=== PATIENT | male | born 1935 | race Caucasian/White ===

== ENCOUNTER 2018-09-06 12:03 | Inpatient (IN) ==
[2018-09-06] MEDS ORDERED: MORPHINE IV ONE ×2 (13:07→15:15)
[2018-09-06] MEDS ORDERED: ZOFRAN IV ONE (13:07)
[2018-09-06 13:39] LABS: BASO# 0.02 X1000 (0.0-0.2); BASO% 0.2 % (0.0-0.8); EOS# 0.23 X1000 (0.0-0.7); EOS% 1.8 % (0.0-10.0); HEMATOCRIT 51.7 % (42.0-52.0); IMM GRAN# 0.06 X1000 (0.0-0.04); IMM GRAN% 0.5 % (0.0-0.5); LYMPH# 0.83 X1000 (1.2-3.4); LYMPH% 6.6 % (20.5-51.1); MCH 32.1 PG (27-31); MCHC 32.9 g/dL (33-37); MCV 97.5 FL (81-99); MONO# 0.83 X1000 (0.11-0.59); MONO% 6.6 % (1.7-9.3); MPV 12.2 FL (7.4-10.4); NEUT# 10.57 X1000 (1.4-6.5); NEUT% 84.3 % (42.2-75.2); PLT 158 X1000 (130-400); RDW 12.9 % (11.5-14.5); WBC 12.54 X1000 (4.8-10.8)
[2018-09-06 14:02] LABS: ALB/GLOB RATIO 1.9; ALBUMIN 4.1 g/dL (3.5-5.0); CALCIUM 8.6 mg/dL (8.8-10.2); CREATININE 1.9 mg/dL (0.7-1.2); MAGNESIUM 2.9 mg/dL (1.5-2.7); POTASSIUM 4.4 mmol/L (3.5-5.1); TOTAL BILIRUBIN 2.27 mg/dL (0.20-1.00); TOTAL PROTEIN 6.3 g/dL (6.3-8.3)
--- NOTE | 2018-09-06 14:45 | Diag Imaging Result Doc PS360 ---
EXAM: US GB < RUQ (LIMITED) INDICATION: RUQ PAIN; PLEASE ALSO EVALUATE CBD COMPARISON: 08/03/2018 FINDINGS: There is thick layering sludge in the gallbladder lumen, which was also seen on the previous study. No shadowing stones are identified on the current study. The gallbladder wall is thickened and edematous, which was not seen on the previous study. The gallbladder wall measures up to 8.7 mm in thickness. No pericholecystic fluid is appreciated. The common bile duct is within normal limits given the age of the patient measuring up to 7 mm in diameter. Sonographic Harvey's sign was reported to be positive by the technologist. There is a 2.6 cm simple appearing hepatic cyst. The liver is grossly unremarkable, otherwise. Portal venous flow is hepatopetal. The pancreas is partially obscured. The visualized portion is unremarkable. The aorta and IVC are also partially obscured. The visualized portions are unremarkable. The right kidney exhibits increased echotexture, which is a nonspecific indicator of medical renal disease. There is a 2.8 cm simple renal cyst. IMPRESSION: Thick sludge in the gallbladder lumen with a significantly thickened and edematous gallbladder wall and a reported positive sonographic Harvey's sign, which is highly suspicious for cholecystitis. Electronically signed by Kevin Khoury 09/06/2018 2:43 PM
[2018-09-06] MEDS ORDERED: NS 1,000 ML IV ONE (14:55)
[2018-09-06 14:57] LABS: URINE SOURCE CLEAN CATCH
[2018-09-06 15:02] LABS: BILIRUBIN URINE NEGATIVE (NEGATIVE); BLOOD URINE NEGATIVE (NEGATIVE); COLOR YELLOW; GLUCOSE URINE NEGATIVE (NEGATIVE); KETONE URINE NEGATIVE (NEGATIVE); LEUKOCYTES URINE NEGATIVE (NEGATIVE); NITRITE URINE NEGATIVE (NEGATIVE); PH URINE 7.5; PROTEIN URINE 30 mg/dL (NEGATIVE); SP GRAVITY URINE 1.016; TURBIDITY URINE CLEAR (CLEAR); UROBILINOGEN URINE 2 mg/dL (NORMAL)
[2018-09-06 15:04] LABS: UR EPITHELIAL CELLS <10 /HPF (<10); URINE BACTERIA NEGATIVE /HPF; URINE RBC <10 /HPF (<10); URINE WBC <10 /HPF (<10)
--- NOTE | 2018-09-06 15:16 | PROVIDER DOCUMENTATION ---
This chart was entered by Lisbet Ramos Scribe, acting as scribe for Yung Garcia MD. HPI-Abdominal Pain/GI Problem - General Chief Complaint: Abdominal Pain Stated Complaint: GALLBLADDER ISSUE Time Seen by Provider: 09/06/18 12:52 Source: patient Allergies/Adverse Reactions: Patient Allergies Allergy/AdvReac Type Severity Reaction Status Date / Time cephalexin [From Keflex] Allergy ANAPHYLAXIS Verified 09/05/18 08:22 steroids AdvReac HIVES Uncoded 09/05/18 08:22 Home Medications: Home Medication List Medication Instructions Recorded Confirmed Last Taken Type Biotin 2,500 mcg PO DAILY 09/05/18 09/05/18 Unknown History Calcium Citrate/Vitamin D3 1 each PO EVERY OTHER DAY 09/05/18 09/05/18 Unknown History [Calcium Citrate - Vit D Tablet] Clopidogrel Bisulfate [Plavix] 75 mg PO DAILY 09/05/18 09/05/18 08/29/18 History Cyanocobalamin (Vitamin B-12) 1,000 mcg PO DAILY 09/05/18 09/05/18 Unknown History [Vitamin B-12] Duloxetine HCl 2 cap PO DAILY 09/05/18 09/05/18 Unknown History Esomeprazole Magnesium 2 tab PO DAILY 09/05/18 09/05/18 Unknown History Evolocumab [Repatha Sureclick] 140 mg SQ DIRECTED 09/05/18 09/05/18 Unknown History Hydrocodone/Acetaminophen [[place] 1 each PO Q8HR 09/05/18 09/05/18 Unknown History 10-325 Tablet] Metoprolol Tartrate 25 mg PO DAILY 09/05/18 09/05/18 Unknown History Nitroglycerin 0.4 mg SL PRN PRN 09/05/18 09/05/18 Unknown History Potassium Chloride [Klor-Con M10] 10 meq PO DAILY 09/05/18 09/05/18 Unknown History Tocilizumab [Actemra] 162 mg SQ DIRECTED 09/05/18 09/05/18 Unknown History Torsemide 20 mg PO DAILY 09/05/18 09/05/18 Unknown History - History of Present Illness-ABD Nature of Presenting Problems: 83 yom presents to the ed with c/o RUQ with n/v x2 3 days. Abdominal Pain Onset Location: reports: RUQ Pain Radiation: reports: no radiation Quality of Pain: reports: aching, cramping Severity in ED: reports: moderate Onset/Duration: reports: 3 days ago Timing: reports: still present, intermittent Activities at Onset: reports: light activity Modifying Factors: improves with: nothing Associated Symptoms: reports: malaise, nausea, vomiting (x2). denies: cough, dizziness, fatigue, fever/chills Last BM: this morning Dark Stools Present?: reports: none noticed Rectal Bleeding: reports: none # of Diarrhea Episodes: 0 Rectal Pain: reports: none # of Vomiting Episodes: 2 Emesis Description: reports: none Bruising or Bleeding Gums?: No Similar Symptoms Previously?: No Review of Systems - Adult - REVIEW OF SYSTEMS - ADULT Constitutional: denies: chills, fever Eyes: reports: no symptoms reported Ears, Nose, Mouth & Throat: reports: no symptoms reported Cardiovascular: denies: chest pain, palpitations Respiratory: denies: cough, shortness of breath, wheezing Gastrointestinal: reports: abdominal pain (RUQ), nausea, vomiting. denies: diarrhea Genitourinary: reports: no symptoms reported Musculoskeletal: denies: back pain, neck pain Integumentary: reports: no symptoms reported Neurological: denies: dizziness/vertigo, headache/migraines Psychiatric: reports: no symptoms reported Endocrine: reports: no symptoms reported Hematologic/Lymphatic: reports: no symptoms reported Allergic/Immunologic: reports: no symptoms reported All Other Systems: Reviewed and Negative Past History - Adult - PAST MEDICAL HISTORY-ADULT Review of Records: reports: Old Records Reviewed, Nursing Assessment Review, Medications Reviewed, Social history reviewed & non-contributory. Major Childhood Illnesses: reports: denies history Cardiovascular: reports: HTN Respiratory: reports: denies history Gastrointestinal: reports: denies history Genitourinary: reports: kidney stones Musculoskeletal: reports: denies history Neurological: reports: denies history Endocrine/Immune: reports: denies history Other Conditions: reports: denies history - PRIOR SURGERIES/PROCEDURES Surgical/Procedure History: reports: reviewed, not pertinent - IMMUNIZATION STATUS Childhood Immunizations: See Nurse Assessment Flu Vaccine: See Nurse Assessment - FAMILY HISTORY Family History: reviewed, not pertinent - SOCIAL HISTORY Smoking: cigarettes, less than 1 pack/day Provider spent 3-5 mins advising pt. on dangers of tobacco.: Discussed manners to quit use, and f/u contacts for add'l counseling. Substance Use: denies Living Situation: family Physical Exam-General - PHYSICAL EXAM-ADULT Initial Vital Signs Reviewed: Yes - CONSTITUTIONAL General Appearance: appears well, alert, no apparent distress - EYES Eyes: PERRL/EOMI, pink conjunctivae - HEAD, EARS, NOSE, MOUTH & THROAT HENMT: normocephalic/atraumatic, moist mucous membranes, normal ENT inspection - NECK Neck: non-tender, full range of motion, supple, normal inspection - RESPIRATORY Respiratory: chest non-tender, lungs clear, normal breath sounds - CARDIOVASCULAR Cardiovascular: normal peripheral pulses, regular rate, rhythm - GASTROINTESTINAL (ABDOMEN) Abdominal Exam: normal bowel sounds, soft, tenderness (RUQ). negative: distended, guarding, rigid, rebound - LYMPHATIC Lymphatic: no adenopathy - MUSCULOSKELETAL Back Exam: normal inspection, no CVA tenderness, no vertebral tenderness Extremity: normal range of motion, non-tender, normal gait, normal inspection, no pedal edema, no calf tenderness, normal capillary refill, pelvis stable - SKIN Integumentary: normal color, normal turgor, warm/dry - NEUROLOGIC Neurologic: grossly normal, no motor/sensory deficits - PSYCHIATRIC Psych/Mental Status: normal mood/affect, normal thought content, normal thought process, oriented x 3 Progress - PLAN OF CARE/RESULTS Progress/Plan/Lab Results: Vital Signs - 8 hr 09/06/18 12:13 Temperature 98.3 F Pulse Rate 75 Respiratory Rate 18 Blood Pressure 141/73 O2 Sat by Pulse Oximetry 94 L Laboratory Results - last 24 hr 09/06/18 13:13 WBC 12.54 H RBC 5.30 Hgb 17.0 Hct 51.7 MCV 97.5 MCH 32.1 H MCHC 32.9 L RDW Std Deviation 12.9 Plt Count 158 MPV 12.2 H Immature Gran % (Auto) 0.5 Neut % (Auto) 84.3 H Lymph % (Auto) 6.6 L Cole % (Auto) 6.6 Eos % (Auto) 1.8 Baso % (Auto) 0.2 Immature Gran # (Auto) 0.06 H Neut # (Auto) 10.57 H Lymph # (Auto) 0.83 L Cole # (Auto) 0.83 H Eos # (Auto) 0.23 Baso # (Auto) 0.02 Orders Category Date Time Status NPO Diet 09/06/18 13:09 Active US GB < RUQ (LIMITED) [US] Stat Exams 09/06/18 13:05 Ordered AMYLASE [CHEM] Stat Lab 09/06/18 13:13 Received BLOOD CULTURE [BLDCUL] Stat Lab 09/06/18 13:13 Ordered CBC WITH ELECTRONIC DIFF [HEME] Stat Lab 09/06/18 13:13 Completed COMPREHENSIVE METABOLIC PANEL [CHEM] Stat Lab 09/06/18 13:13 Received LACTATE, PLASMA [CHEM] Stat Lab 09/06/18 13:13 Received LIPASE [CHEM] Stat Lab 09/06/18 13:13 Received MAGNESIUM [CHEM] Stat Lab 09/06/18 13:13 Received URINALYSIS W/POSS RFLX CULT [URINALYSIS] Stat Lab 09/06/18 13:09 Uncollected Morphine Med 09/06/18 13:07 Discontinued 4 mg IV NOW ONE Ondansetron [Zofran] Med 09/06/18 13:07 Discontinued 4 mg IV NOW ONE Result Diagrams: 09/06/18 13:13 09/06/18 13:13 - REASSESSMENT Reassessment #1 Time Reassessed: 15:14 Status: unchanged (SPOKE TO DR. KRAUS; PER DR. KRAUS SINCE ITS DR. RAMOS'S PATIENT, CONSULT HOSPITALIST FOR ADMISSION FOR CHOLECYSITIS AND HAVE HOSPITALIST CONSULT BRIGETTE. SPOKE TO HOSPITALIST; APPRECAITE THEIR ASSISTANCE. ) - ULTRASOUND (By Radiology) 1 US Study: Abdomen ([facility] [address] [facility], [address], [place] [address] Department of Imaging Patient: NATALIA MONTES Date: #: [id number] : 1935DM Status: REG ERAt#: [id number] Age/Sex: 83/MRoom/Bed: Loc: ED Ordering Physician: Yung Garcia MD Family Physician: She Ortiz MD Reason for Procedure: RUQ PAIN; PLEASE ALSO EVALUATE CBD Signed EXAM: US GB < RUQ (LIMITED) INDICATION: RUQ PAIN; PLEASE ALSO EVALUATE CBD COMPARISON: 08/03/2018 FINDINGS: There is thick layering sludge in the gallbladder lumen, which was also seen on the previous study. No shadowing stones are identified on the current study. The gallbladder wall is thickened and edematous, which was not seen on the previous study. The gallbladder wall measures up to 8.7 mm in thickness. No pericholecystic fluid is appreciated. The common bile duct is within normal limits given the age of the patient measuring up to 7 mm in diameter. Sonographic Harvey's sign was reported to be positive by the technologist. There is a 2.6 cm simple appearing hepatic cyst. The liver is grossly unremarkable, otherwise. Portal venous flow is hepatopetal. The pancreas is partially obscured. The visualized portion is unremarkable. The aorta and IVC are also partially obscured. The visualized portions are unremarkable. The right kidney exhibits increased echotexture, which is a nonspecific indicator of medical renal disease. There is a 2.8 cm simple renal cyst. IMPRESSION: Thick sludge in the gallbladder lumen with a significantly thickened and edematous gallbladder wall and a reported positive sonographic Harvey's sign, which is highly suspicious for cholecystitis. Electronically signed by Kevin Khoury 09/06/2018 2:43 PM 09/06/18 1443 Interpreting Physician: Keivn Khoury MD Dictated Date/Time: 09/06/18 1435 cc: Yung Garcia MD; She Ortiz MD) Departure - Departure Date of Disposition Decision: 09/06/18 Time of Disposition Decision: 15:15 DIAGNOSIS: Cholecystitis Disposition: ADMITTED INPATIENT 09 Certified Medical Emergency: Emergent Condition: Fair Referrals and Follow-Ups: She Ortiz MD [Primary Care Provider] - - Critical Care Note This patient required my direct & personal management of CC.: No Attestation - Physician/ JENNIFER Attestation Patient care was provided by Advanced Practice Provider:: No The physician spent face to face time with patient:: Yes Advanced Practice Provider documentation review:: Supervising physician onsite and consulted in the evaluation and care of this patient. The physician did have a face to face encounter with the patient. This chart was documented by the indicated scribe, (Lisbet Ramos Scribe) and accurately reflects the services I performed and decisions made by me, Yung Garcia MD, as attested by the provider's signature.
[2018-09-06] MEDS ORDERED: MORPHINE IV PRN (15:29)
[2018-09-06] MEDS: FLAGYL 500 MG/NS 500 MG/100 ML IVPB IV SCH ×2 (15:38→21:14)
[2018-09-06] MEDS ORDERED: TYLENOL PO PRN (15:40)
[2018-09-06] MEDS ORDERED: ZOFRAN IV PRN (15:40)
[2018-09-06] MEDS ORDERED: CIPRO 400 MG/D5W 400 MG/200 ML IVPB IV ONE (16:00)
--- NOTE | 2018-09-06 16:07 | Diag Imaging Result Doc PS360 ---
CHEST-2 VIEWS - 09/06/2018 INDICATION: leukocytosis COMPARISON: None FINDINGS: There is a small infiltrate in the left lower lobe adjacent to the diaphragm. Best seen on the lateral view. Heart size is normal. No pneumothorax or pleural effusion. IMPRESSION: Left lower lobe infiltrate/pneumonia. Electronically signed by Duy Medrano 09/06/2018 4:05 PM
[2018-09-06] MEDS ORDERED: NITROGLYCERIN SL PRN (16:17)
--- NOTE | 2018-09-06 16:48 | Diag Imaging Result Doc PS360 ---
EXAM: FOOT COMPLETE RIGHT INDICATION: pain TECHNIQUE: 3 views COMPARISON: None. FINDINGS: There is no discrete fracture, dislocation, or significant intrinsic osseous lesion. The visualized joint spaces are essentially unremarkable. The surrounding soft tissues are essentially unremarkable by plain radiograph. IMPRESSION: No evidence of acute osseous abnormality. Electronically signed by Kevin Khoury 09/06/2018 4:46 PM
[2018-09-06] MEDS: NS 1,000 ML IV SCH ×2 (17:19→21:14)
--- NOTE | 2018-09-06 17:21 | Diag Imaging Result Doc PS360 ---
EXAM: CT ABDOMEN/PELVIS W/O CONTRAST HISTORY: severe abd pain and constipation TECHNIQUE: CT abdomen and pelvis without contrast COMPARISON: None. FINDINGS: There is scarring and bronchiectasis in the lower lungs. There is thickening to the gallbladder wall with mild adjacent inflammation. No calcified gallstones. There are several cysts within the liver. No other hepatic abnormality identified on this noncontrasted exam. Normal spleen, pancreas, and adrenal glands. There are scattered bilateral renal cysts. The largest arises from the anterior left kidney measuring 3.8 cm. No renal stones. No hydronephrosis. Prominent atherosclerosis. No aortic aneurysm. No bowel obstruction. There are scattered colonic diverticula. Normal appendix. No abscess. No ascites. Normal prostate. Urinary bladder is moderately distended and is normal. IMPRESSION: Cholecystitis This report was discussed with Ashly in the emergency room on 09/06/2018 at 5:20 PM and was readback. This exam was performed using automated exposure control, adjustment of mA or kV according to patient size, and/or use of iterative reconstruction technique. Electronically signed by Cornelius Pichardo 09/06/2018 5:20 PM
--- NOTE | 2018-09-06 17:29 | HISTORY AND PHYSICAL ---
PRIMARY CARE PROVIDER: Maria E Ortiz PRIMARY RHEUMATOLOGY: Through [facility] in [place]. CHIEF COMPLAINT: Bilateral upper quadrant abdominal pain with nausea, vomiting, and constipation. HISTORY OF PRESENT ILLNESS: Mr. Beulah Yates is an 83-year-old male with a medical history of coronary artery disease with stents on Plavix, congestive heart failure, GERD, CKD stage III, rheumatoid arthritis, and giant cell arteritis, who apparently has been having symptoms of nausea, vomiting, bilateral upper quadrant pain that has been intermittent since May. He was eventually diagnosed with cholecystitis, had seen Dr. Ramos this past for evaluation of cholecystectomy. Given the symptoms, he was put on the schedule for this coming as outpatient cholecystectomy surgery, but the symptoms became so bad this morning that he was having radiation up into the right shoulder. He actually started having some pain in the right foot that appears to be possible gout, which he does not have a medical history. He had an ultrasound of the abdomen which showed thick sludge in the gallbladder. He also had a very thickened and edematous gallbladder with a positive Harvey's sign. Dr. Fuentes was notified who then notified Dr. Ramos of the patient being here and has also been notified of elevating liver enzymes. The patient will be started on antibiotic therapy, transferred to the floor, and symptoms treated. Also given his symptoms of having constipation, taking MiraLAX daily, will go ahead and just get an abdominal pelvic CT. PAST MEDICAL HISTORY: 1. Coronary artery disease with 2 mild myocardial infarctions, one in 2006 and another one in 2016. Also had stents during those times with a total of 3 stents. 2. GERD. 3. Hyperlipidemia. 4. Hypertension. 5. Congestive heart failure. 6. Chronic kidney disease stage III. 7. Kidney stones. 8. Chronic pain syndrome due to rheumatoid arthritis. 9. 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 PAST SURGICAL HISTORY: 1. PTCA with 3 stents in 2006, 2016. Has been on Plavix but has been off Plavix since the 7th of this month. 2. Hemorrhoidectomy. 3. Right knee meniscus repair. 4. Right cataract surgery. SOCIAL HISTORY: He smokes a pipe everyday, at least 4 bowls per day for the last 70 years. It has always been a pipe, never smoked cigarettes. Denies alcohol or illicit drug use. He lives with his . They just moved here recently in March 2018 from [place]. FAMILY HISTORY: Mother had hypertension, stroke, and myocardial infarction which she from at the age of 87. Father at the age of 54 due to acute appendicitis and sepsis. ALLERGIES: Chlorhexidine, Keflex, and steroids. Apparently the chlorhexidine causes extreme swelling, local swelling. HOME MEDICATIONS: 1. [place] 10 one tablet p.o. every 8 hours. 2. Biotin 2500 mcg p.o. daily. 3. Calcium citrate/vitamin D 1 tablet p.o. every other day. 4. Plavix 75 mg p.o. daily. 5. Vitamin B12 1000 mcg p.o. daily. 6. Duloxetine HCL 60 mg p.o. daily. 7. Nexium 40 mg p.o. daily. 8. Repatha 140 mg subcu as directed. 9. Metoprolol 25 mg p.o. daily. 10.Nitroglycerin 0.4 mg sublingual as needed. 11.Potassium chloride 10 mEq p.o. daily. 12.Actemra 162 mg subcu as directed. 13.Torsemide 20 mg p.o. daily. REVIEW OF SYSTEMS: Includes right foot and right great toe pain with heat and swelling. Bilateral upper quadrant abdominal pain radiates to the right shoulder. Constipation, but has been able to have a daily bowel movement with MiraLAX but still continues to feel the feeling of urgency with the inability to relieve the symptoms of urgency. Last bowel movement was today and it was soft and brown. Denies any fever or chills today but states he had some fever and chills yesterday. Claims to have had a 15-pound weight loss and only able to tolerate bland diet. Still continues to have nausea after eating. Otherwise a 10-point review of systems is complete and all were negative except for those mentioned. PHYSICAL EXAMINATION: VITAL SIGNS: Temperature is 98.3, heart rate 75, respiratory rate 18, blood pressure 141/73, O2 saturation is 94% on room air. Height 5 feet 10 inches tall, 165 pounds, with a BMI of 23.7. GENERAL: Mr. Beulah Yates is an 83-year-old male. He is in no acute distress. He is able to answer questions appropriately. HEENT: Atraumatic, normocephalic. Pupils are equal, round, and reactive to light. Extraocular movements are intact. Mucous membranes are dry. Left eye blindness. NECK: Trachea midline. CARDIOVASCULAR: S1, S2. Regular rate and rhythm. No rubs, gallops, murmurs. Right foot edema noted but has bilateral +2 dorsalis pedis pulse. No edema in the left leg. +2 radial pulses. Negative JVD or carotid bruits. PULMONARY: Clear to auscultation with bilateral breath sounds. No accessory muscle use or work of breathing noted. GASTROINTESTINAL: Semi-firm. He has guarding with palpation. He has bilateral upper quadrant tenderness and hypoactive bowel sounds. EXTREMITIES: Moves all extremities equally with full range of motion. NEUROLOGICAL: Alert and oriented x3. Follows commands. Sensory is intact. SKIN: Warm, dry and intact except for under skin right foot redness with erythema over the right great toe. No open wounds. LABORATORY DATA: White blood cells 12,000, hemoglobin 17, hematocrit 51, platelet count 158. Sodium 142, potassium 4.4, BUN 28, creatinine 1.9, GFR 34, glucose 114, calcium 8.6, magnesium 2.9, bilirubin 2.27, AST 371, ALT 440. Albumin 4.1, amylase 16, lipase 24, lactated 1.3. Urinalysis: 30 protein and 2 urobilinogen. IMAGING: Abdominal ultrasound with thick sludge in the gallbladder lumen with a significant thickened and edematous gallbladder wall and a report of positive sonographic Harvey's sign which is highly suspicious for cholecystitis. Chest x-ray: Left lower lobe infiltrate and pneumonia. ASSESSMENT AND PLAN: 1. Acute cholecystitis. He has planned gallbladder removal for followed by Dr. Ramos. Dr. Ramos has been notified by Dr. Fuentes liver enzymes have been elevated on this admission. Antiemetics given. Given leukocytosis, Cipro and Flagyl were added. 2. Bilateral upper quadrant pain with constipation. On top of having the pain from the gallbladder, he could also be having some constipation pain as well, but will go ahead and do a CT of the abdomen and pelvis to rule out any other sources for pain. He will have morphine for that. 3. Right foot great toe swelling with redness, pain, and heat. Will do a uric acid level. He claims to have had no trauma to the area. There are no open wounds. Will get x-ray as well. They can add something for gout if he has any diagnosis of gout. 4. Left lower lobe pneumonia. Denies any symptoms, but he does have leukocytosis. Lactate is normal. He will be on Cipro which could cover for pneumonia. 5. Tobacco abuse cessation discussed. 6. Coronary artery disease history with history of myocardial infarction and stents on Plavix. He has been off Plavix since the of this month in prep for surgery. Denies any chest pain at this time. 7. Gastroesophageal reflux disease. Continue with proton pump inhibitor. 8. Hypertension. Continue home medications. 9. Chronic kidney disease stage III. He will get some IV fluids as he can only have clear liquids for now. Will recheck in the morning. 10.Chronic pain syndrome from rheumatoid arthritis and giant cell arteritis. Pain control with morphine for now and [place] that he takes at home. 11.Hyperlipidemia. 12.Deep venous thrombosis prophylaxis. Will do sequential compression devices. Dictated by ELSA Dominguez for Tino Donald MD cc: ELSA Dominguez MD
[2018-09-06] MEDS: NORCO-10 PO SCH (21:45)
[2018-09-07] MEDS: FLAGYL 500 MG/NS 500 MG/100 ML IVPB IV SCH ×5 (03:28→20:42)
[2018-09-07] MEDS: NORCO-10 PO SCH ×3 (04:37→20:42)
[2018-09-07] MEDS: CIPRO 400 MG/D5W 400 MG/200 ML IVPB IV SCH ×2 (04:37→18:12)
[2018-09-07 05:46] LABS: BASO# 0.02 X1000 (0.0-0.2); BASO% 0.3 % (0.0-0.8); EOS# 0.28 X1000 (0.0-0.7); EOS% 4.4 % (0.0-10.0); HEMATOCRIT 45.8 % (42.0-52.0); HEMOGLOBIN 14.7 g/dL (14.0-18.0); IMM GRAN# 0.03 X1000 (0.0-0.04); IMM GRAN% 0.5 % (0.0-0.5); LYMPH# 0.93 X1000 (1.2-3.4); LYMPH% 14.6 % (20.5-51.1); MCHC 32.1 g/dL (33-37); MCV 99.8 FL (81-99); MONO# 0.53 X1000 (0.11-0.59); MONO% 8.3 % (1.7-9.3); MPV 11.9 FL (7.4-10.4); NEUT# 4.59 X1000 (1.4-6.5); NEUT% 71.9 % (42.2-75.2); PLT 132 X1000 (130-400); RBC 4.59 XMIL (4.7-6.1); RDW 13.1 % (11.5-14.5); WBC 6.38 X1000 (4.8-10.8)
[2018-09-07 06:13] LABS: INR 1.03; PROTIME 14.4 Seconds (11.0-16.0)
[2018-09-07 06:14] LABS: PTT 28.8 Seconds (22.3-41.8)
[2018-09-07 06:46] LABS: ALB/GLOB RATIO 1.9; ALBUMIN 3.4 g/dL (3.5-5.0); CALCIUM 7.8 mg/dL (8.8-10.2); CREATININE 1.6 mg/dL (0.7-1.2); MAGNESIUM 2.5 mg/dL (1.5-2.7); POTASSIUM 4.4 mmol/L (3.5-5.1); TOTAL BILIRUBIN 2.34 mg/dL (0.20-1.00); TOTAL PROTEIN 5.2 g/dL (6.3-8.3)
[2018-09-07] MEDS: PRILOSEC PO SCH (07:25)
[2018-09-07] MEDS: TOPROL XL PO SCH (08:03)
[2018-09-07] MEDS ORDERED: XYLOCAINE-MPF 2% ONE (08:05)
[2018-09-07] MEDS ORDERED: DIPRIVAN 1% ONE (08:06)
[2018-09-07] MEDS ORDERED: QUELICIN (DOSE) ONE (08:06)
--- NOTE | 2018-09-07 08:06 | CONSULTATION ---
DATE OF CONSULTATION: 09/07/2018 HISTORY OF PRESENT ILLNESS: Mr. Beulah Yates is an 83-year-old white male who I have evaluated in our outpatient office for symptomatic gallstones. He presented to the emergency department yesterday with right upper quadrant pain. A CT scan of his abdomen and pelvis was performed, which suggested acute cholecystitis. He was admitted. It was planned to take his gallbladder out tomorrow as an outpatient, but we will try to proceed earlier today. His heart rate is 69, blood pressure 115/57, O2 saturation 92%. He has no work of breathing. He is afebrile. His white blood cell count has gone from 12 to 6, his hematocrit is 45%. His liver function tests are elevated. His BUN and creatinine are 20 and 1.6. His coagulation studies are within normal limits. IMPRESSION: Acute cholecystitis. PLAN: Laparoscopic, possible open cholecystectomy today. I have discussed the procedure in detail with the patient and his family again at the bedside this morning. His daughter was also present. We discussed the risks of surgery, which include bleeding, infection, injury to the extrahepatic bile ducts requiring reoperation, conversion of laparoscopic to open cholecystectomy, bile leak requiring reoperation for drainage, injury to intra-abdominal contents with trocar placement. He understands the need for surgery and its risks. He was recently evaluated by Cardiology, and he is at moderate risk for heart problems during surgery. cc: Mackenzie Ramos MD
[2018-09-07] MEDS: BIOTIN PO SCH (08:15)
[2018-09-07] MEDS ORDERED: LR 1,000 ML ONE (08:15)
[2018-09-07] MEDS: KLOR-CON PO SCH (08:15)
[2018-09-07] MEDS: CYMBALTA PO SCH (08:15)
[2018-09-07] MEDS ORDERED: SENSORCAINE 0.5%-EPI 1:200,000 ONE (08:15)
[2018-09-07] MEDS: DEMADEX PO SCH (08:15)
[2018-09-07] MEDS ORDERED: SODIUM CHLORIDE 0.9% ONE (08:15)
[2018-09-07] MEDS: VITAMIN B-12 PO SCH (08:16)
[2018-09-07] MEDS ORDERED: REGLAN ONE (08:25)
[2018-09-07] MEDS ORDERED: PEPCID ONE (08:25)
[2018-09-07] MEDS ORDERED: STERILE WATER INJ. ONE (08:56)
[2018-09-07] MEDS ORDERED: NORCURON ONE (08:56)
[2018-09-07] MEDS ORDERED: ZOFRAN ONE (08:59)
[2018-09-07] MEDS ORDERED: FENTANYL ONE (08:59)
[2018-09-07] MEDS ORDERED: EPHEDRINE ONE (09:00)
[2018-09-07] MEDS ORDERED: PITRESSIN ONE (09:04)
[2018-09-07] MEDS ORDERED: ROBINUL ONE (09:51)
[2018-09-07] MEDS ORDERED: NEOSTIGMINE ONE (09:52)
[2018-09-07] MEDS: MORPHINE ONE ×2 (10:37→10:42)
--- NOTE | 2018-09-07 10:52 | OPERATIVE NOTE ---
PROCEDURE DATE: 09/07/2018 PREOPERATIVE DIAGNOSIS: Acute cholecystitis with cholelithiasis. POSTOPERATIVE DIAGNOSES: 1. Acute cholecystitis with cholelithiasis. 2. Choledocholithiasis. PRINCIPAL PROCEDURE: Laparoscopic cholecystectomy with intraoperative cholangiogram. SURGEON: Mackenzie Ramos MD. ANESTHESIA: General in addition to local anesthetic. ESTIMATED BLOOD LOSS: 100 mL. DRAINS: None. INDICATIONS: Mr. Beulah Yates is an 83-year-old white male, who I have seen in our outpatient offices because of symptomatic gallstones. He was scheduled for an elective cholecystectomy, but had to have an appointment with his traffic maintenance officer prior to his surgery. He presented to the emergency department yesterday with symptomatic gallstones and x-rays suggesting acute cholecystitis. He was admitted by our hospitalist and today, we decided to take him to surgery. FINDINGS: The liver appeared to be healthy. The gallbladder was acutely inflamed and becoming gangrenous within its mary. There was a greater omentum attached to it, which we had to dissect away. He had multiple small stones in his gallbladder, and the color of his bile was abnormal. I felt that he had a long cystic duct. We did do an intraoperative cholangiogram, which showed no dye into the duodenum. It was consistent with an obstruction in the distal common bile duct. I did not feel the hepatic ducts. I was comfortable with the anatomy in my cystic duct. I felt we did the operation safely. No other intra-abdominal pathology was noted. DESCRIPTION OF PROCEDURE: The patient was brought to the operating room, placed supine, received general anesthesia, and was intubated. His abdomen was prepped and draped within the sterile field. He was already on IV Cipro. I made a curvilinear incision below the umbilicus with a 15 blade scalpel. Veress needle was introduced through this incision into the abdomen. Pneumoperitoneum was established. The Veress needle was removed, and I placed an 11 mm trocar through this incision into the abdomen. The camera was placed through this port, and the abdomen was explored for injury, there was none. Three other trocars were placed along the right costal margin under direct vision of the camera. I placed a 10 mm trocar just to the right of the midline and two 5 mm trocars in our midclavicular and anterior axillary lines. Initially, we had to take the greater omentum which was tightly adhered to the fundus and the underside of the gallbladder down. I used a spatula cautery and also blunt dissection, and we slowly mobilized the gallbladder off the greater omentum, and we were able to retract the right lobe of the liver and the gallbladder together. I used blunt dissection to dissect the triangle of [place]. I identified the cystic duct along its length. I placed a clip at the cystic duct gallbladder junction. I made a small incision in the cystic duct using hook scissors and a taut intraoperative cholangiogram catheter was used to perform the cholangiogram with the findings above. Once cholangiogram was completed, we removed the catheter and 2 clips were placed proximally on the cystic duct. I did divide the cystic duct between clips using hook scissors. The cystic artery was identified. A clip was placed distally, 2 proximally, and it was divided using hook scissors. The spatula cautery was used to remove the gallbladder from the liver bed. We did use an endobag to remove the gallbladder through our umbilical incision. We placed the trocar back through this incision, and the area of operation was thoroughly inspected and the irrigation was removed with suction. We did have to use a spatula cautery to control some bleeding from the liver bed. We thoroughly irrigated the area and again, the irrigation was removed with suction. We decided against leaving a drain. All trocars removed under direct vision the camera. The pneumoperitoneum was allowed to dissipate. I used several 2-0 Vicryl stitches to reapproximate the fascia at the umbilicus and then I reapproximated the fascia at the 10 will mm port site. All skin was closed with 4-0 Monocryl subcuticular stitches. Steri-Strips were applied. Plans are for him to go the recovery room, and then be readmitted to the floor. We will have to ask Gastroenterology to evaluate him for possible ERCP. cc: Mackenzie Ramos MD
--- NOTE | 2018-09-07 12:20 | Diag Imaging Result Doc PS360 ---
EXAM: OPERATIVE CHOLANGIOGRAM 09/07/2018 HISTORY: CHOLECYSTITIS TECHNIQUE: Two views COMMENT: There is what appears to be a stone impacted in the distal common bile duct. There may be more than one stone. There is no contrast is demonstrated in the duodenum. Common hepatic duct is not opacified. IMPRESSION: Retained stone or stones in the distal common bile duct. Electronically signed by Nirmal Amos 09/07/2018 12:17 PM
[2018-09-07] MEDS ORDERED: PREDNISONE PO SCH (12:45)
[2018-09-07] MEDS: COLCRYS PO SCH (13:21)
--- NOTE | 2018-09-07 17:24 | PROGRESS NOTE ---
DATE: 09/07/2018 SUBJECTIVE: The patient is resting in bed. Recently had cholecystectomy done. Operative cholangiogram showed evidence of retained stones in the distal common bile duct. OBJECTIVE: Vital signs: Temperature 97.7 degrees, pulse 100, respirations 20, HEENT: Atraumatic, normocephalic. Cardiovascular: S1, S2. Respiratory system: Has evidence of good air entry bilaterally. Abdomen: Dressing over the wound site noted. Extremities: Right foot looks inflamed. Central nervous system: No obvious focal deficits noted. LABORATORY DATA: WBC 6.3, hematocrit 35.8 with a platelet count of 132,000. Sodium is 143, potassium is 4.4, chloride 102, bicarb 27, BUN is 20, creatinine 1.6. ASSESSMENT AND PLAN: 1. Acute cholecystitis. The patient has had a cholecystectomy done. The patient being followed by the surgical team. 2. Gout, right foot. The patient has been placed on intravenous steroids. Patient should respond nicely to this. 3. Coronary artery disease. Asymptomatic. 4. Hypertension. Resume all antihypertensive medications. 5. Gastroesophageal. PPI. 6. Chronic kidney disease. Renal function improving. Follow up on renal function. Avoid nephrotoxic agent. 7. Deep vein thrombosis prophylaxis. Sequential compression devices. 8. Gastrointestinal prophylaxis. PPI. cc: Tino Donald MD MTDD
[2018-09-07] MEDS: SOLU-MEDROL IV SCH (17:33)
[2018-09-07] MEDS: NS 1,000 ML IV SCH (17:34)
[2018-09-08] MEDS: SOLU-MEDROL IV SCH ×3 (01:52→16:39)
[2018-09-08] MEDS: FLAGYL 500 MG/NS 500 MG/100 ML IVPB IV SCH ×3 (04:00→16:39)
[2018-09-08] MEDS: CIPRO 400 MG/D5W 400 MG/200 ML IVPB IV SCH (05:28)
[2018-09-08] MEDS: NORCO-10 PO SCH ×4 (05:30→22:18)
--- NOTE | 2018-09-08 05:49 | CONSULTATION ---
DATE OF CONSULTATION: 09/07/2018 REASON FOR CONSULTATION: Recent cholecystectomy with abnormal intraoperative cholangiogram suggesting obstruction of the distal common bile duct. HISTORY OF PRESENT ILLNESS: This is an 83-year-old white male, who reports onset of symptoms back in May. He had intermittent abdominal pain. He was diagnosed with cholecystitis. He had seen Dr. Ramos as an outpatient, and they had planned on outpatient cholecystectomy for tomorrow. The patient had worsening of his symptoms including abdominal pain, nausea, and vomiting that brought him into the emergency room. It was decided to go ahead and proceed with laparoscopic cholecystectomy today. Operative report from Dr. Ramos was reviewed. Intraoperative cholangiogram showed no dye into the duodenum consistent with obstruction in the distal common bile duct. The patient is currently awake and alert. He is a little drowsy after surgery. He does report some abdominal pain postoperatively. He has family at the bedside. I have spoken with his . They state they had recently moved here, and have gotten a primary physician, Dr. She Ortiz in [place]. Patient had symptoms off and on since May and as noted above, had seen Dr. Ramos, as an outpatient for outpatient cholecystectomy, but started having worsening symptoms, and came into the emergency room. 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 He follows with a assembly line inspector in [place]. PAST SURGICAL HISTORY: Hemorrhoidectomy, right knee meniscus repair, right cataract surgery, and cardiac stents. ALLERGIES: Keflex causing anaphylaxis, steroids causing hives. HOME MEDICATIONS: Biotin 2500 mcg daily, calcium D 1 every other day, Plavix 75 mg daily. The patient has been off of Plavix for his cholecystectomy since August 29, vitamin B12 at 1000 mcg daily, duloxetine 2 daily, Nexium daily, evolocumab (Repatha) 140 mg subcutaneous as directed, [place] 10/325 every 8 hours as needed, metoprolol 25 mg daily, nitroglycerin 0.4 mg sublingual as needed, potassium 10 mEq daily, Actemra 160 mg subcutaneous as directed, furosemide 20 mg daily. SOCIAL HISTORY: He is . They have recently moved here from [place]. He smokes a pipe daily. He denies alcohol use. FAMILY HISTORY: Family history with hypertension, stroke, and myocardial infarction in his mother. Father at age 54 due to acute appendicitis and sepsis. REVIEW OF SYSTEMS: Per history of present illness, patient has also complained of chronic constipation. Has been on MiraLAX. Patient has also had complaints of right foot pain. X-ray was done. PHYSICAL EXAMINATION: Vital Signs: Temperature 97.7 degrees, pulse 70, respirations 18, blood pressure 140/61. Generally: Patient is awake, alert, in no acute distress. HEENT: Normocephalic, atraumatic. Pupils equal, round, reactive to light. Sclerae are nonicteric. Cardiovascular: Regular rate and rhythm. Pulmonary: Lung sounds essentially clear. Gastrointestinal: The patient has laparoscopic incisions from recent cholecystectomy. Has some bloody drainage noted at the umbilical incision with dressing intact. Tender postoperatively. Neurological: Cranial nerves 2-12 are grossly intact. Extremities: Patient has redness and some swelling to the right foot. X-RAY: Has been done. LABORATORY: Hematology: WBC 6.38, hemoglobin 14.7, hematocrit 45.8, MCV 99.8, platelet 132,000. Coagulation: Pro-time 14.4, INR 1.03, PTT 28.8. Chemistry: Sodium 143, potassium 4.4, chloride 106, CO2 27, BUN 20, creatinine 1.6, glucose 102. Uric acid was 10.5, calcium 7.8, total bilirubin 2.34, AST 276, ALT 448, alkaline phosphatase 114, amylase 60, and lipase 24. ASSESSMENT AND PLAN: 1. Acute cholecystitis status post laparoscopic cholecystectomy this morning. 2. Abnormal intraoperative cholangiogram. Patient will be scheduled for an endoscopic retrograde cholangiopancreatography tomorrow by Dr. Hogue. I have gone over the procedure along with benefits and risks with the patient, and he wishes to proceed. 3. Right foot pain and redness. X-ray showed no acute abnormalities. His uric acid level was elevated and will refer to hospitalist for management. 4. Continues p.r.n. medications for pain. Allow clear liquid diet tonight and then held NPO after midnight for endoscopic retrograde cholangiopancreatography tomorrow. I have discussed the procedure along with benefits and risks with the patient. He wishes to proceed. Further plans will be made according to findings. I have informed the patient that if a stent has to be placed, he would have to have the stent removed in 6 to 8 weeks. Again, further plans to be made as needed. Patient and family voiced understanding. I have discussed this case with Dr. Hogue. Dictated by ELSA Lilly for Ignacio Hogue MD cc: ELSA Sanchez MD
[2018-09-08] MEDS: PRILOSEC PO SCH (05:59)
[2018-09-08 06:21] LABS: ALBUMIN 4.1 g/dL (3.5-5.0); CALCIUM 9.1 mg/dL (8.8-10.2); CREATININE 1.9 mg/dL (0.7-1.2); POTASSIUM 5.1 mmol/L (3.5-5.1); TOTAL PROTEIN 6.2 g/dL (6.3-8.3); URIC ACID 8.3 mg/dL (3.4-7.0)
[2018-09-08 06:30] LABS: BASO# 0.01 X1000 (0.0-0.2); BASO% 0.1 % (0.0-0.8); HEMATOCRIT 46.5 % (42.0-52.0); IMM GRAN# 0.07 X1000 (0.0-0.04); IMM GRAN% 0.5 % (0.0-0.5); LYMPH# 0.46 X1000 (1.2-3.4); LYMPH% 3.5 % (20.5-51.1); MCH 32.3 PG (27-31); MCHC 32.3 g/dL (33-37); MCV 100.2 FL (81-99); MONO# 0.18 X1000 (0.11-0.59); MONO% 1.4 % (1.7-9.3); MPV 11.8 FL (7.4-10.4); NEUT# 12.42 X1000 (1.4-6.5); NEUT% 94.5 % (42.2-75.2); PLT 155 X1000 (130-400); RBC 4.64 XMIL (4.7-6.1); RDW 13.3 % (11.5-14.5); WBC 13.14 X1000 (4.8-10.8)
--- NOTE | 2018-09-08 07:18 | Diag Imaging Result Doc PS360 ---
EXAM: CHEST-1 VIEW 09/08/2018 HISTORY: pneumonia TECHNIQUE: AP portable at 0559 COMMENT: There is increasing opacity in the right lower lobe compared to 09/06/2018. There is also some increase in density behind the heart in the left lower lobe. IMPRESSION: Worsening pulmonary edema and/or pneumonia. Electronically signed by Nirmal Amos 09/08/2018 7:15 AM
[2018-09-08 07:41] LABS: LYMPHS 4 % (21-51); MONO 1 % (1-9); SEGS 95 % (42-75)
[2018-09-08] MEDS ORDERED: CITRACAL + D PO SCH (09:00)
--- NOTE | 2018-09-08 09:04 | Diag Imaging Result Doc PS360 ---
ERCP-BILIARY AND PANCREATIC - 09/08/2018 INDICATION: DISTAL CBD OBSTRUCTION TECHNIQUE: The exam was performed by the patient's endoscopist. Total fluoroscopy time was seven minutes. Seven images were obtained. COMPARISON: Cholangiogram from 09/07/2018 FINDINGS: On initial injection of the common bile duct, dilated intra and extrahepatic bile ducts were visible. No visible dilation or obstruction at the end of the procedure. IMPRESSION: No evidence of complication. Electronically signed by Duy Medrano 09/08/2018 9:02 AM
[2018-09-08] MEDS: BIOTIN PO SCH (09:13)
[2018-09-08] MEDS: VITAMIN B-12 PO SCH (09:14)
[2018-09-08] MEDS: DEMADEX PO SCH (09:15)
[2018-09-08] MEDS: KLOR-CON PO SCH (09:16)
[2018-09-08] MEDS: TOPROL XL PO SCH (09:20)
[2018-09-08] MEDS: CYMBALTA PO SCH (09:20)
[2018-09-08] MEDS: COLCRYS PO SCH (09:28)
--- NOTE | 2018-09-08 09:42 | OPERATIVE NOTE ---
PROCEDURE DATE: 09/08/2018 PROCEDURES: Endoscopic retrograde cholangiopancreatography, sphincterotomy and stone extraction. PREOPERATIVE DIAGNOSIS: Choledocholithiasis, status post cholecystectomy. POSTOPERATIVE DIAGNOSIS: Choledocholithiasis, status post cholecystectomy. MEDICATION USED: MAC as per Anesthesia. SCOPE USED: Pentax duodenoscope. HISTORY: This is an 83-year-old gentleman, who had presented with symptomatic gallbladder disease. He had laparoscopic cholecystectomy done yesterday. Intraoperative cholangiogram revealed a filling defect in the distal common bile duct which was occluding the common bile duct. There was no contrast flowing into the small bowel. ERCP was done for therapeutic purposes. DESCRIPTION OF PROCEDURE: Informed consent was obtained from the patient. The procedure, risks, benefits, alternatives were explained in layman's terms. Risks of, but not limited to bleeding, perforation, aspiration, pneumonia, and pancreatitis was explained. He understood. He agreed to proceed. The patient was brought to the endoscopy unit and was premedicated as per Anesthesia. After adequate sedation while he was lying in left lateral position, the duodenoscope was introduced into the posterior pharynx and advanced manually into the esophagus. Through the esophagus, it was advanced to the stomach. Stomach was insufflated. Pylorus was identified. The scope was then passed through the pylorus into the duodenal bulb, and then to the second portion of the duodenum. The major papilla was identified. Minor papilla was also noted. Using the sphincterotome with the help of a guidewire, common bile duct was preferentially cannulated, contrast injected and cholangiogram obtained which revealed a normal-sized common bile duct. Intrahepatic ducts were also normal size. There was evidence of recent cholecystectomy. There were clips in place. The cystic duct was truncated. In the distal common bile duct, a 6 to 7 mm filling defect was seen. Significant amount of debris was seen draining out of the common bile duct also. At this point, I went ahead and proceeded with sphincterotomy. After adequate sphincterotomy, I used an extraction balloon and swiped the common bile duct multiple times. Finally, the stone was removed. The stone was about 6 to 8 mm in size, oval shaped, yellowish brown in color. After that, the contrast was seen flowing out of the common bile duct freely. There were no further filling defects seen. Scope was then removed. Patient tolerated the procedure well. No complications were noted. Patient was then transferred to the recovery area in a stable condition. IMPRESSION: Choledocholithiasis status post cholecystectomy. PLAN: Recommended to resume his diet, resume his old medications. Advised to follow up with me at the office as needed and follow up with primary care as scheduled. cc: MD Mackenzie Jacobo MD
[2018-09-08] MEDS ORDERED: LEVAQUIN 250 MG/D5W 250 MG/50 ML IVPB IV SCH (12:15)
--- NOTE | 2018-09-08 12:19 | PROGRESS NOTE ---
DATE: 09/08/2018 SUBJECTIVE: The patient is resting comfortable in bed. OBJECTIVE: Vital signs are as follows: Temperature 98.6, pulse 85, respiratory rate 18, blood pressure 143/60. Oxygen saturation 93%. HEENT: Head atraumatic, normocephalic. Cardiovascular: S1, S2. Respiratory: Has evidence of good entry bilaterally. Abdomen is soft, nontender. No masses felt. Extremities: Slight erythema noted in the dorsal aspect of the right foot. Central Nervous System: No obvious focal deficit noted. LABORATORY DATA: WBC 13.14, hematocrit 46.4, with a platelet count of 155,000. Sodium is 139, potassium 5.1, chloride 100, bicarb 25. BUN is 20, creatinine is 1.9. AST 146, ALT is 357. ASSESSMENT AND PLAN: 1. Status post laparoscopic cholecystectomy for acute cholecystitis. The patient seems to be doing well. He had an ERCP with sphincterotomy as well as stone extraction x1 earlier on today. 2. Gout, right foot. Continue intravenous steroids. The patient seemed to be doing better. 3. Coronary artery disease, asymptomatic. 4. Hypertension. Continue current antihypertensive regimen. 5. Gastroesophageal reflux disease. Continue proton pump inhibitor. 6. Chronic kidney disease. Follow up on renal function. Avoid nephrotoxic agents. 7. Deep vein thrombosis prophylaxis. Sequential compression devices. 8. Gastrointestinal prophylaxis. Proton pump inhibitor. cc: Tino Donald MD
[2018-09-08] MEDS: NS 1,000 ML IV SCH (14:37)
[2018-09-09] MEDS: SOLU-MEDROL IV SCH ×2 (00:09→09:22)
--- NOTE | 2018-09-09 01:32 | PROGRESS NOTE ---
DATE: 09/08/2018 SUBJECTIVE: Mr. Beulah Yates is an 83-year-old white male with known coronary artery disease, who is now postop day 1 from a laparoscopic cholecystectomy, with intraoperative cholangiogram, for acute cholecystitis with cholelithiasis. He also had stones in the distal common duct. He had an ERCP today, which was successful, per Dr. Hogue. This evening, he is feeling well. He is eating a heart healthy diet. He has been ambulating in the halls. OBJECTIVE: His liver function tests are elevated, but they are coming down as expected. His white blood cell count is a little bit elevated, I think secondary to his surgery. He is being treated with IV steroids for gout. His heart rate is 67, blood pressure 143/63, oxygen saturation 99%. He is afebrile. He is receiving IV antibiotics. He is voiding without difficulty. PLAN: I like how he is eating a heart healthy diet and ambulating. His foot feels better after being treated for IV steroids for gout. The plan is to keep him overnight and reassess. Discharge tomorrow. cc: Mackenzie Ramos MD
[2018-09-09] MEDS: FLAGYL 500 MG/NS 500 MG/100 ML IVPB IV SCH ×2 (03:46→09:22)
[2018-09-09 06:41] LABS: BASO# 0.01 X1000 (0.0-0.2); BASO% 0.1 % (0.0-0.8); HEMATOCRIT 40.3 % (42.0-52.0); HEMOGLOBIN 13.5 g/dL (14.0-18.0); IMM GRAN# 0.08 X1000 (0.0-0.04); IMM GRAN% 0.6 % (0.0-0.5); LYMPH% 4.5 % (20.5-51.1); MCH 33.2 PG (27-31); MCHC 33.5 g/dL (33-37); MONO# 0.45 X1000 (0.11-0.59); MONO% 3.4 % (1.7-9.3); MPV 11.7 FL (7.4-10.4); NEUT# 12.05 X1000 (1.4-6.5); NEUT% 91.4 % (42.2-75.2); PLT 148 X1000 (130-400); RBC 4.07 XMIL (4.7-6.1); WBC 13.19 X1000 (4.8-10.8)
[2018-09-09 07:21] LABS: ALB/GLOB RATIO 2.1; ALBUMIN 3.4 g/dL (3.5-5.0); CALCIUM 8.6 mg/dL (8.8-10.2); CREATININE 1.8 mg/dL (0.7-1.2); POTASSIUM 4.8 mmol/L (3.5-5.1); TOTAL BILIRUBIN 0.6 mg/dL (0.20-1.00)
[2018-09-09 07:33] LABS: LYMPHS 4 % (21-51); MONO 2 % (1-9); SEGS 94 % (42-75)
[2018-09-09] MEDS: NORCO-10 PO SCH (07:37)
[2018-09-09] MEDS: PRILOSEC PO SCH (07:41)
[2018-09-09] MEDS: NS 1,000 ML IV SCH (07:46)
--- NOTE | 2018-09-09 09:04 | PROGRESS NOTE ---
DATE: 09/09/2018 Mr. Beulah Vargas is an 83-year-old white male who is now postop day 2 from a laparoscopic cholecystectomy, with intraoperative cholangiogram for acute cholecystitis with cholelithiasis. He also had a stone in his distal common duct and required an ERCP yesterday by Dr. Hogue. This morning, he states that he feels well. He is tolerating his diet. His liver function tests are decreasing as expected. His white blood cell count is 13. His blood count remains steady. His BUN and creatinine have improved. His trocar sites are healing well. His abdomen is slightly distended. The pain that he has had in his foot has improved with IV steroids. As far as the surgical standpoint, I feel that it is safe to discharge him to his home with followup in our outpatient offices in 7 to 10 days. He knows to contact me with any abdominal symptoms, nausea and vomiting. cc: Mackenzie Ramos MD
[2018-09-09] MEDS: VITAMIN B-12 PO SCH (09:22)
[2018-09-09] MEDS: COLCRYS PO SCH (09:23)
[2018-09-09] MEDS: BIOTIN PO SCH (09:23)
[2018-09-09] MEDS: DEMADEX PO SCH (09:24)
[2018-09-09] MEDS: TOPROL XL PO SCH (09:24)
[2018-09-09] MEDS: CYMBALTA PO SCH (09:24)
[2018-09-09] MEDS: KLOR-CON PO SCH (09:25)
[2018-09-09 11:35] VITALS: BP 135/65
--- NOTE | 2018-09-09 12:21 | PROGRESS NOTE ---
DATE: 09/09/2018 SUBJECTIVE: The patient is sitting on the side of the bed in no acute distress. I believe he will be discharged today. The patient is status post cholecystectomy with abnormal intraoperative cholangiogram that showed a filling defect in the distal common bile duct. The patient had an ERCP on 09/08/2018 with findings of choledocholithiasis. Sphincterotomy was performed and stone extraction. A bile stent was not placed. The patient states he is feeling better. OBJECTIVE: Vital Signs: Temperature 98.6 degrees, pulse 87, respirations 24, blood pressure 135/65. General: The patient is awake, alert, and in no acute distress. He is sitting on the side of the bed. LABORATORY DATA: Hematology: WBC 13.19, hemoglobin 13.5, hematocrit 40.3, MCV 99, platelets 148,000. Chemistry: Sodium 140, potassium 4.8, chloride 105, CO2 of 25, BUN 27, total bilirubin 0.6, AST 59, ALT 198, alkaline phosphatase 91. ASSESSMENT AND PLAN: 1. Status post cholecystectomy. 2. Choledocholithiasis, status post ERCP with sphincterotomy and stone extraction. 3. Elevated liver function tests are improving. The patient's symptoms are improving. He has some mild postoperative tenderness. I believe he will be discharged today. I recommend he follow up with Dr. Caldwell as recommended. He can follow up with Dr. Hogue as needed. A common bile duct stent was not placed, so he will not need a repeat ERCP. I recommend he follow with us if he has any problems. 4. I have discussed this case with Dr. Hogue. Dictated by ELSA Lilly for Ignacio Hogue MD cc: ELSA Sanchez MD
--- NOTE | 2018-09-10 13:29 | DISCHARGE SUMMARY ---
ADMISSION DATE: 09/06/2018 DISCHARGE DATE: 09/09/2018 PRINCIPAL DIAGNOSIS: Acute cholecystitis, status post laparoscopic cholecystectomy. SECONDARY DIAGNOSIS: 1. Common bile duct stone, status post endoscopic retrograde cholangiopancreatography with sphincterotomy and also stone extraction. 2. Pneumonia. 3. Gout. 4. Tobacco use history. 5. Gallbladder disease. 6. Gastroesophageal reflux disease. 7. Hypertension. 8. Chronic kidney disease. 9. Chronic pain syndrome. 10. Rheumatoid arthritis. 11. Hyperlipidemia. DISCHARGE MEDICATIONS: 1. Colchicine 0.6 mg p.o. once a day. 2. Calcium with vitamin D one p.o. every other day. 3. Vitamin B12 8000 mcg p.o. daily. 4. Actemra as directed 5. Duloxetine 2 caps daily. 6. Potassium chloride 10 mEq p.o. daily. 7. Evolocumab 140 mg subcutaneously 8. Lasix 10 mg p.o. daily. 9. Nitroglycerin 0.4 mg sublingual as needed. 10. Plavix 75 mg p.o. daily. 11. Metoprolol 25 mg p.o. daily. 12. Omeprazole magnesium 40 mg 2 caps daily. 13. Biotin 2500 mcg p.o. daily. 14. [place] 10/325 one p.o. every 8 hours. CONSULTATIONS DONE DURING THIS HOSPITAL STAY: 1. Dr. Tadeo Ramos, surgeon. 2. Dr. Ignacio Hogue, furnace packer. HOSPITAL COURSE: Mr. Beulah Yates is an 83-year-old male who was diagnosed as having acute cholecystitis. The patient subsequently had laparoscopic cholecystectomy done. He was noted to have a common bile duct stone and was seen by GI. He had an ERCP with sphincterotomy, as well as stone extraction. Post procedure, the patient seemed to have done fairly well. He is noted to have pneumonia on his x-ray and currently on antibiotics. He will be discharged home on oral antibiotics. He did have a gout flare up involving the right foot which was managed with steroids. At this time, the patient has done well. He is stable, and he can now be discharged home. PHYSICAL EXAMINATION: Vital Signs: Temperature 97.5, pulse 96, respirations 20 , blood pressure 140/75, oxygen saturation 94%. HEENT: Atraumatic, normocephalic. Cardiovascular: S1, S2. Respiratory System: Has evidence of good air entry bilaterally. Abdomen: Soft. No masses felt. Extremities: No edema. Central Nervous System: No obvious focal deficit noted. PLAN: Discharge home today. Follow up with primary care physician and also follow up with the surgeon and also a automotive warranty administrator. cc: Tino Donald MD MTDD
== END 2018-09-09 12:20 | disposition home or self-care (01) | DRG 417 ==
LOC: ED 12:03 → 4N 17:47
PROVIDERS: ATTEND Internal Medicine
PROC: EN.ERCP (2018-09-08 07:03)
CPT/HCPCS: 71010; 71020; 71045; 71046; 73630; 74176; 74300; 74330; 76705; 80053; 81001; 82150; 83605; 83690; 83735; 84550; 85025; 85610; 85730; 87040; 88304; 94761; 96365; 96367; 96375; 96376; 99285; A9270; C1751; C1769; J0330; J0744; J1956; J2270; J2405; J2765; J2920; J3010; J7030; J7120; Q9966; Q9967; S0028; S0030

== ENCOUNTER 2019-11-13 15:07 | Inpatient (IN) ==
[2019-11-13] MEDS ORDERED: NS 1,000 ML IV ONE ×2 (15:17→17:10)
--- NOTE | 2019-11-13 15:23 | PROVIDER DOCUMENTATION ---
HPI-Fever - General Stated Complaint: FEVER, COUGH Time Seen by Provider: 11/13/19 15:15 Source: patient Allergies/Adverse Reactions: Patient Allergies Allergy/AdvReac Type Severity Reaction Status Date / Time cephalexin [From Keflex] Allergy ANAPHYLAXIS Verified 09/05/18 08:22 steroids AdvReac HIVES Uncoded 09/05/18 08:22 Home Medications: Home Medication List Medication Instructions Recorded Confirmed Last Taken Type Biotin 2,500 mcg PO DAILY 09/05/18 09/05/18 Unknown History Calcium Citrate/Vitamin D3 1 each PO EVERY OTHER DAY 09/05/18 09/05/18 Unknown History [Calcium Citrate - Vit D Tablet] Clopidogrel Bisulfate [Plavix] 75 mg PO DAILY 09/05/18 09/05/18 08/29/18 History Cyanocobalamin (Vitamin B-12) 1,000 mcg PO DAILY 09/05/18 09/05/18 Unknown History [Vitamin B-12] Duloxetine HCl 2 cap PO DAILY 09/05/18 09/05/18 Unknown History Esomeprazole Magnesium 2 tab PO DAILY 09/05/18 09/05/18 Unknown History Evolocumab [Repatha Sureclick] 140 mg SQ DIRECTED 09/05/18 09/05/18 Unknown History Hydrocodone/Acetaminophen [[place] 1 each PO Q8HR 09/05/18 09/05/18 Unknown History 10-325 Tablet] Metoprolol Tartrate 25 mg PO DAILY 09/05/18 09/05/18 Unknown History Nitroglycerin 0.4 mg SL PRN PRN 09/05/18 09/05/18 Unknown History Potassium Chloride [Klor-Con M10] 10 meq PO DAILY 09/05/18 09/05/18 Unknown History Tocilizumab [Actemra] 162 mg SQ DIRECTED 09/05/18 09/05/18 Unknown History Torsemide 20 mg PO DAILY 09/05/18 09/05/18 Unknown History Colchicine [Colcrys] 0.6 mg PO DAILY tablet 09/09/18 Unknown Rx - History of Present Illness-Fever Nature of Presenting Problem: 84 YOM with PMH of COPD, [place], HTN presents with c/o SOB x4 days worsening, fever, body aches. Was seen at PCP and sent via EMS to ER. He reports a cough with green sputum, SOB that has gotten worse since onset and was "bad enough today to go to the doctor". He denies sick contacts, travel. Fever Severity/Quality: reports: subjective Onset/Duration: reports: 4 days ago Timing: reports: still present, getting worse Severity: reports: severe Context: reports: none Recent Illness?: reports: none Cognitive Baseline: alert, oriented x3 Modifying Factors: improves with: nothing Associated Symptoms: reports: cough, fever/chills, muscle aches, shortness of breath Similar Symptoms Previously?: No Recently seen or treated by another doctor?: Yes (PCP today, sent in via EMS) - Gl[place]ow Coma Score Best Eye Response (Delta): (4) open spontaneously Best Verbal Response ([place]): (5) oriented Best Motor Response ([place]): (6) obeys commands Review of Systems - Adult - REVIEW OF SYSTEMS - ADULT Constitutional: reports: chills, fever. denies: no symptoms reported, see HPI, fatique, night sweats, weight gain, weight loss, other Ears, Nose, Mouth & Throat: reports: no symptoms reported. denies: see HPI, ear discharge, ear pain, hearing loss, tinnitus, epistaxis, sinus problem, nose pain, loose teeth, mouth/dental pain, mouth swelling, hoarseness, throat pain, throat swelling, other Cardiovascular: reports: no symptoms reported. denies: see HPI, chest pain, edema, heart murmur, irregular heart rate, orthopnea, palpitations, poor circulation, PND, syncope, other Respiratory: reports: cough (with yellow green sputum), shortness of breath, wheezing Gastrointestinal: reports: no symptoms reported. denies: see HPI, abdominal pain, hematemesis, constipation, diarrhea, difficulty swallowing, frequent heartburn, nausea, poor appetite, rectal bleeding, vomiting, other Genitourinary: reports: no symptoms reported. denies: see HPI, dysuria, discharge, frequency, flank pain, frequent UTI's, hematuria, hesitency, incontinence, urinary retention, urgency, other Musculoskeletal: reports: no symptoms reported. denies: see HPI, bone pain, back pain, frequent leg cramps, joint pain, joint swelling, muscle aches, muscle weakness, neck pain, other Integumentary: reports: no symptoms reported. denies: see HPI, hives, hair loss, itching, mole changes, nail changes, rash, skin sores/ulcer, skin thickening, other Neurological: reports: no symptoms reported. denies: see HPI, ataxia, dizziness/vertigo, headache/migraines, loss of balance, numbness, paresthesia, seizure, slurred speech, syncope, tremors, other Psychiatric: reports: no symptoms reported. denies: see HPI, anxiety, anti-d epressant use, alcohol/drug dependence, depression, emotional problems, insomnia, panic attacks, suicidal thoughts, other Endocrine: reports: no symptoms reported. denies: see HPI, change in skin pigment, excessive sweating, goiter, cold intolerance, heat intolerance, incre ased hunger, increased thirst, polyuria, other Hematologic/Lymphatic: reports: no symptoms reported. denies: see HPI, blood clots, easy bruising, low blood count, lymphedema, prolonged bleeding, swollen lymph nodes, transfusions, other Allergic/Immunologic: reports: no symptoms reported. denies: see HPI, allergic reactions, allergic rhinitis, asthma, eczema, food allergy, frequent infections, hay fever, hives, positive PPD, urticaria, other Past History - Adult - PAST MEDICAL HISTORY-ADULT Review of Records: reports: Nursing Assessment Review, Social history reviewed & non-contributory. Major Childhood Illnesses: reports: denies history Cardiovascular: reports: HTN Respiratory: reports: denies history Gastrointestinal: reports: denies history Genitourinary: reports: kidney stones Musculoskeletal: reports: denies history Neurological: reports: denies history Endocrine/Immune: reports: denies history Other Conditions: reports: denies history - PRIOR SURGERIES/PROCEDURES Surgical/Procedure History: reports: reviewed, not pertinent - IMMUNIZATION STATUS Childhood Immunizations: See Nurse Assessment Flu Vaccine: See Nurse Assessment - FAMILY HISTORY Family History: reviewed, not pertinent Physical Exam-General - PHYSICAL EXAM-ADULT Initial Vital Signs Reviewed: Yes - CONSTITUTIONAL General Appearance: alert, mild distress - EYES Eyes: PERRL/EOMI, pink conjunctivae - HEAD, EARS, NOSE, MOUTH & THROAT HENMT: normocephalic/atraumatic, moist mucous membranes, normal ENT inspection - NECK Neck: non-tender, full range of motion, supple - RESPIRATORY Respiratory: chest non-tender, no pleuratic chest pain, no respiratory distress, crackles, wheezing - CARDIOVASCULAR Cardiovascular: normal peripheral pulses, no edema, no gallop, no JVD, no murmur - GASTROINTESTINAL (ABDOMEN) Abdominal Exam: normal bowel sounds, non tender, soft, no organomegaly, no pulsatile mass - LYMPHATIC Lymphatic: no adenopathy - MUSCULOSKELETAL Back Exam: normal inspection, no CVA tenderness, no vertebral tenderness Extremity: normal range of motion, non-tender, normal gait, normal inspection, no pedal edema, no calf tenderness, normal capillary refill Peripheral Pulses: radial (R): 2+, radial (L): 2+ - SKIN Integumentary: normal color, normal turgor, warm/dry - NEUROLOGIC Neurologic: grossly normal. negative: aphasia, facial droop - PSYCHIATRIC Psych/Mental Status: normal mood/affect, oriented x 3 Progress - PLAN OF CARE/RESULTS Progress/Plan/Lab Results: Vital Signs - 8 hr 11/13/19 15:20 Temperature 99.8 F H Pulse Rate 116 H Respiratory Rate 22 Blood Pressure 111/74 O2 Sat by Pulse Oximetry 97 11/13/19 15:30 Influenza Screen - Final Nasopharyngeal 11/13/19 15:30 Group A Strep Rapid Antigen - Final Throat Laboratory Results - last 24 hr 11/13/19 11/13/19 11/13/19 15:30 15:30 15:30 WBC RBC Hgb Hct MCV MCH MCHC RDW Std Deviation Plt Count MPV Neut % (Auto) Lymph % (Auto) [place] % (Auto) Eos % (Auto) Baso % (Auto) Neut # (Auto) Lymph # (Auto) [place] # (Auto) Eos # (Auto) Baso # (Auto) PT INR PTT (Actin FS) Sodium 138 Potassium 4.9 Chloride 98 Carbon Dioxide 28 Anion Gap 12 BUN 29 H Creatinine 1.9 H Estimated GFR/1.73 m2 34 BUN/Creatinine Ratio 15 Glucose 114 H Calculated Osmolality 282 Calcium 9.4 Total Bilirubin 0.67 AST 26 ALT 22 Alkaline Phosphatase 84 Troponin T High Sens 32 H Egz-Z-Oxrnflzutpu Pept Total Protein 6.3 Albumin 4.1 Globulin 2.2 Albumin/Globulin Ratio 1.9 Plasma Lactate 1.6 11/13/19 11/13/19 11/13/19 15:30 15:30 15:30 WBC 22.24 H RBC 4.41 L Hgb 15.1 Hct 46.8 MCV 106.1 H MCH 34.2 H MCHC 32.3 L RDW Std Deviation 14.8 H Plt Count 157 MPV 12.1 H Neut % (Auto) 87.7 H Lymph % (Auto) 4.0 L [place] % (Auto) 7.8 Eos % (Auto) 0.5 Baso % (Auto) 0.0 Neut # (Auto) 19.51 H Lymph # (Auto) 0.88 L [place] # (Auto) 1.74 H Eos # (Auto) 0.11 Baso # (Auto) 0.00 PT 12.9 INR 0.96 PTT (Actin FS) 29.6 Sodium Potassium Chloride Carbon Dioxide Anion Gap BUN Creatinine Estimated GFR/1.73 m2 BUN/Creatinine Ratio Glucose Calculated Osmolality Calcium Total Bilirubin AST ALT Alkaline Phosphatase Troponin T High Sens Nft-R-Cnzuiixdzle Pept 450 Total Protein Albumin Globulin Albumin/Globulin Ratio Plasma Lactate Orders Category Date Time Status NEWS Score 2-4:Order NEWS Lactate Series NOW Care 11/13/19 15:25 Active Saline Loc NOW Care 11/13/19 15:16 Active CHEST-PORTABLE [RAD] Stat Exams 11/13/19 15:16 Completed BNP [PRO B-NATRIURETIC PEPTIDE] Stat Lab 11/13/19 15:30 Completed CBC WITH ELECTRONIC DIFF [HEME] Stat Lab 11/13/19 15:30 Completed COMPREHENSIVE METABOLIC PANEL [CHEM] Stat Lab 11/13/19 15:30 Completed Flu Swab [INFLUENZA SCREEN A/B] Stat Lab 11/13/19 15:30 Completed LACTATE, PLASMA [CHEM] Stat Lab 11/13/19 15:30 Completed PROTIME WITH INR [COAG] Stat Lab 11/13/19 15:30 Completed PTT [COAG] Stat Lab 11/13/19 15:30 Completed Strep [DIRECT STREP] Stat Lab 11/13/19 15:30 Completed TROPONIN T HIGH SENSITIVITY Stat Lab 11/13/19 15:30 Completed UA NIMS W/REFLEX CULT [URINALYSIS] Stat Lab 11/13/19 15:50 Uncollected 0.9% Sodium Chloride Inj [Ns] 1,000 ml Med 11/13/19 15:17 Discontinued IV 999 mls/hr Albuterol 2.5MG/Ipratrop 0.5MG [Duoneb (A & A)] Med 11/13/19 16:48 Discontinued 3 ml INH NOW ONE Levofloxacin 500 mg/D5w [Levaquin 500 mg/D5w] Med 11/13/19 16:36 Active 500 mg in 100 ml IV NOW Levofloxacin 750 mg/D5w [Levaquin 750 mg/D5w] Med 11/13/19 16:13 Discontinued 750 mg in 150 ml IV NOW Aerosol Treatments Routine Oth 11/13/19 16:48 Active Aerosol Treatments Stat Oth 11/13/19 16:48 Active Oxygen Device Stat Oth 11/13/19 15:16 Active EKG [EKG] Stat Ther 11/13/19 15:16 Draft Result Diagrams: 11/13/19 15:30 11/13/19 15:30 - EKG 1 Time of EKG reading by physician:: 16:11 EKG Read and Signed by:: Vahe Sanchez EKG Interpretation (*Must complete 3 of following elements*): Abnormal Rate: 111 Rhythm: ST with premature SV complexes [place]: normal QRS: other (left anterior fascicular block) HI Interval: normal ST Wave: non-specific ST changes (cannot rule out inferior infarcy masked by fascicular block) Prior EKG Comparison: no prior EKG - XRAY 1 XRAY Study: Chest Impression: See EMR Report (EXAM: CHEST-PORTABLE 11/13/2019 HISTORY: SOB, Cough, Fever TECHNIQUE: AP portable semiupright at 0359 COMMENT: The heart size is not enlarged. There is diffuse interstitial opacity particularly in the perihilar portion of the right upper lobe which is definitely worse than on 06/01/2019. IMPRESSION: Pulmonary edema and/or pneumonia. Electronically signed by Nirmal Amos 11/13/2019 4:06 PM 11/13/19 1606 Interpreting Physician: Nirmal Amos MD Dictated Date/Time: 11/13/19 1605 cc: Katiuska Meyers; Dalia Cooper) - CONSULTS/PCP/HOSPITALIST Notification #1 *Consult/PCP/Hospitalist*: ELSA Butler Time Discussed: 17:09 Consult Disposition: Admit Departure - Departure Date of Disposition Decision: 11/13/19 Time of Disposition Decision: 17:10 DIAGNOSIS: Pneumonia, CKD (chronic kidney disease) Disposition: ADMITTED INPATIENT 09 Certified Medical Emergency: Emergent Condition: Stable Referrals and Follow-Ups: Dalia Cooper CRNP [Primary Care Provider] - - Critical Care Note This patient required my direct & personal management of CC.: No Attestation - Physician/ JENNIFER Attestation Patient care was provided by Advanced Practice Provider:: Yes Advanced Practice Provider:: Katiuska Meyers Advanced Practice Provider documentation review:: The Mid-level provider documentation, treatment plan and medical decision making was reviewed by the physician who agrees with all treatment and medical decision making by the MLP. The physician spent face to face time with patient:: No Advanced Practice Provider documentation review:: Supervising physician onsite and consulted in the evaluation and care of this patient. The physician did not have a face to face encounter with the patient.
[2019-11-13 16:06] LABS: EOS# 0.11 X1000 (0.0-0.7); EOS% 0.5 % (0.0-10.0); HEMATOCRIT 46.8 % (42.0-52.0); HEMOGLOBIN 15.1 g/dL (14.0-18.0); LYMPH# 0.88 X1000 (1.2-3.4); MCH 34.2 PG (27-31); MCHC 32.3 g/dL (33-37); MCV 106.1 FL (81-99); MONO# 1.74 X1000 (0.11-0.59); MONO% 7.8 % (1.7-9.3); MPV 12.1 FL (7.4-10.4); NEUT# 19.51 X1000 (1.4-6.5); NEUT% 87.7 % (42.2-75.2); PLT 157 X1000 (130-400); RBC 4.41 XMIL (4.7-6.1); RDW 14.8 % (11.5-14.5); WBC 22.24 X1000 (4.8-10.8)
--- NOTE | 2019-11-13 16:08 | Diag Imaging Result Doc PS360 ---
EXAM: CHEST-PORTABLE 11/13/2019 HISTORY: SOB, Cough, Fever TECHNIQUE: AP portable semiupright at 0359 COMMENT: The heart size is not enlarged. There is diffuse interstitial opacity particularly in the perihilar portion of the right upper lobe which is definitely worse than on 06/01/2019. IMPRESSION: Pulmonary edema and/or pneumonia. Electronically signed by Nirmal Amos 11/13/2019 4:06 PM
[2019-11-13] MEDS ORDERED: LEVAQUIN 750 MG/D5W 750 MG/150 ML IVPB IV ONE (16:13)
[2019-11-13 16:31] LABS: ALB/GLOB RATIO 1.9; ALBUMIN 4.1 g/dL (3.5-5.0); CALCIUM 9.4 mg/dL (8.8-10.2); CREATININE 1.9 mg/dL (0.7-1.2); POTASSIUM 4.9 mmol/L (3.5-5.1); TOTAL BILIRUBIN 0.67 mg/dL (0.20-1.00); TOTAL PROTEIN 6.3 g/dL (6.3-8.3)
[2019-11-13 16:34] LABS: INR 0.96; PROTIME 12.9 Seconds (11.0-16.0)
[2019-11-13 16:35] LABS: PTT 29.6 Seconds (22.3-41.8)
[2019-11-13] MEDS ORDERED: LEVAQUIN 500 MG/D5W 500 MG/100 ML IVPB IV ONE (16:36)
[2019-11-13] MEDS ORDERED: DUONEB (A & A) INH ONE (16:48)
--- NOTE | 2019-11-13 16:54 | EKG Report ---
Test Performed on : 11/13/2019 4:11:05 PM Test Reason : SOB Blood Pressure : / mmHG Vent. Rate : 111 BPM Atrial Rate : 111 BPM P-R Int : 154 ms QRS Dur : 082 ms QT Int : 334 ms P-R-T Axes : 079 -57 081 degrees QTc Int : 454 ms Sinus tachycardia. with premature supraventricular complexes. Left anterior fascicular block Cannot rule out Inferior infarct (masked by fascicular block?) , age undetermined Abnormal ECG No previous ECGs available Unconfirmed Result
[2019-11-13] MEDS ORDERED: NS 340 ML IV ONE (17:10)
[2019-11-13] MEDS ORDERED: TYLENOL PO PRN ×2 (17:32→18:14)
[2019-11-13] MEDS ORDERED: ZOFRAN IV PRN (18:13)
[2019-11-13] MEDS ORDERED: AZACTAM 0.5 GM in NS 50 ML IV SCH (18:30)
--- NOTE | 2019-11-13 18:30 | HISTORY AND PHYSICAL ---
PRIMARY CARE PROVIDER: Dr. She Ortiz and Dalia HUNTER. PRIMARY RECYCLING OPERATIONS MANAGER: The [facility] in [place]. CHIEF COMPLAINT: Shortness of breath and coughing up green-yellow phlegm. HISTORY OF PRESENT ILLNESS: Mr. Beulah Yates is an 84-year-old male with a medical history of COPD, but he is not on any home O2. 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 He states that for the last two to three days he was becoming increasingly short of breath, primarily with movement. He denies any fevers. He has been getting a little bit dizzy, loses his balance some, and he has had a productive green-yellow phlegm with cough. He denies having any fever. However, when he presents, his temperature is 99.8 degrees. He has elevated white count at 22,000. Lactate is normal. He has a chest x-ray that shows he has a right upper lobe pneumonia. He denies any symptoms of coughing when he is eating, so we are going to continue to treat him and work him up. PAST MEDICAL HISTORY: 1. COPD, no home oxygen. 2. Coronary artery disease, history of two MIs, one in 2006, another one in 2017, total of three stents for those. 3. GERD. 4. Hyperlipidemia. 5. Hypertension. 6. Congestive heart failure. 7. CKD stage 3. 8. Kidney stones. 9. Chronic pain syndrome due to RA or rheumatoid arthritis. 10. 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 SURGICAL HISTORY: 1. Cholecystectomy. 2. PTCA x3 stents in 2006 and in 2017. Has been on Plavix. 3. Hemorrhoidectomy. 4. Right knee meniscus repair. 5. Right cataract surgery. SOCIAL HISTORY: He lives with his . Moved here recently in March 2018 from [place]. He smokes a pipe every day, at least four bowls per day for the last 70 years. Never smoked cigarettes. Denies alcohol or illicit drug use. FAMILY HISTORY: Mother had hypertension, stroke, myocardial infarction, at the age of 87. Father at 54 due to acute appendicitis and sepsis. ALLERGIES: Chlorhexidine, Keflex, and steroids. Apparently, the chlorhexidine causes extreme swelling and local swelling. HOME MEDICATIONS: Have not been reconciled yet. REVIEW OF SYSTEMS: Fourteen point review of systems are complete and are negative except for those mentioned in the above HPI. PHYSICAL EXAMINATION: VITAL SIGNS: Temperature 99.8 degrees, heart rate 116, respiratory rate 22, blood pressure 111/74, O2 saturation is 97% on 4 L nasal cannula. GENERAL: Mr. Beulah Yates is an 84-year-old male who is in no acute distress. He is able answer questions appropriately. HEENT: Atraumatic, normocephalic. Pupils equal, round, and reactive to light. Extraocular movements intact. Mucous membranes are dry. NECK: Trachea midline. CARDIOVASCULAR: S1, S2. Tachycardic rate and rhythm. No rubs, gallops, or murmurs. No lower extremity edema. +2 dorsalis and radial pulses. Negative JVD and carotid bruits. PULMONARY: Clear to auscultation, bilateral breath sounds. No accessory muscle use or work of breathing noted. ABDOMEN: Soft, nontender, nondistended. Positive bowel sounds x4. EXTREMITIES: Moves all extremities equally. Decreased range of motion. His cane is in the bed with him. NEUROLOGIC: Oriented x3. Follows commands. Sensory is intact. SKIN: Warm, dry, intact. LABORATORY DATA: White blood cells 22,000, hemoglobin 15, hematocrit 46, platelet count 157,000. INR 0.96, PTT is 29.6. Sodium 138, potassium 4.9, BUN 29, creatinine 1.9, glucose 114, calcium 9.4, bilirubin 0.67, AST 26, ALT 22, troponin 32. ProBNP 450. Albumin 4.1. Lactate 1.6. IMAGING: Chest x-ray with pulmonary edema and/or pneumonia, particularly in the right upper lobe. EKG with sinus tachycardia with PVCs, rate 111, QTc is 454. ASSESSMENT/PLAN: 1. Right upper lobe pneumonia, possibly some pulmonary edema in there, requiring some oxygen. He has been started on Levaquin and nebulizers. 2. Chronic obstructive pulmonary disease, possibly with some exacerbation but he has an allergy to steroids even though he has taken them in the past for his rheumatology type issues in the past. We will hold the steroids. Continue the nebulizers. 3. Acute on chronic hypoxemic respiratory insufficiency or failure requiring 4 L of oxygen. He is not on any oxygen at home. Please see previous two numbers. 4. History of congestive heart failure. He is getting intravenous fluids. We will have to monitor closely. There is no signs of heart failure at this time. 5. Chronic kidney disease stage 3. He is actually doing quite well. His creatinine is 1.9. He looks like he hangs around anywhere from 1.5 to 2.3, so he is at baseline. 6. History of coronary artery disease. Denies chest pain. 7. Hypertension. Waiting for home medications to be reconciled. 8. Chronic pain syndrome due to rheumatoid arthritis. Again, still waiting for home medications to be reconciled. 9. Deep venous thrombosis prophylaxis with sequential compression devices. 10. Tobacco abuse. Cessation discussed. Dictated by ELSA Dominguez for Evette Valentine MD cc: ELSA Dominguez MD
[2019-11-13 18:45] LABS: ALLEN TEST YES; BE 0.7 mmoll (-3.0-3.0); BLOOD TYPE ARTERIAL; HCO3-(ACT) 25.4 mmoll (20.0-26.0); METHB 0.9 % (0.0-1.5); O2HB 95.7 % (95.0-99.0); PCO2(98.6) 49 mmHg (35-45); PO2(98.6) 99 mmHg (60-100); SAMPLE BLOOD; SAO2 97.1 % (95.0-100.0); THB 14.8 g/dL (11.5-17.4); pH(98.6) 7.35 (7.35-7.45)
[2019-11-13 18:46] LABS: MODALITY CANNULA
[2019-11-13] MEDS: DUONEB (A & A) INH SCH (21:36)
[2019-11-13] MEDS: ZYVOX 600 MG/D5W 600 MG/300 ML IVPB IV SCH (21:59)
[2019-11-13] MEDS: NS 1,000 ML IV ONE (22:00)
[2019-11-14] MEDS: AZACTAM 0.5 GM in NS 50 ML IV SCH ×2 (02:36→10:45)
[2019-11-14 05:28] LABS: URINE SOURCE CLEAN CATCH
[2019-11-14 05:31] LABS: BILIRUBIN URINE NEGATIVE (NEGATIVE); BLOOD URINE NEGATIVE (NEGATIVE); COLOR YELLOW; GLUCOSE URINE TRACE mg/dL (NEGATIVE); KETONE URINE NEGATIVE (NEGATIVE); LEUKOCYTES URINE NEGATIVE (NEGATIVE); NITRITE URINE NEGATIVE (NEGATIVE); PH URINE 6.5; PROTEIN URINE 30 mg/dL (NEGATIVE); SP GRAVITY URINE 1.021; TURBIDITY URINE CLEAR (CLEAR); UROBILINOGEN URINE 2 mg/dL (NORMAL)
[2019-11-14 05:33] LABS: UR EPITHELIAL CELLS <10 /HPF (<10); URINE BACTERIA NEGATIVE /HPF; URINE RBC <10 /HPF (<10); URINE WBC <10 /HPF (<10)
--- NOTE | 2019-11-14 06:29 | Diag Imaging Result Doc PS360 ---
CHEST-PORTABLE - 11/14/2019 INDICATION: Pneumonia COMPARISON: 11/13/2019 FINDINGS: There is no significant change in the multifocal patchy ill-defined interstitial infiltrates bilaterally. Heart size remains normal. No pneumothorax or pleural effusion. IMPRESSION: Stable moderate interstitial infiltrates bilaterally consistent with pneumonia or viral infection. Electronically signed by Duy Medrano 11/14/2019 6:27 AM
[2019-11-14 06:37] LABS: BASO# 0.02 X1000 (0.0-0.2); BASO% 0.1 % (0.0-0.8); EOS# 0.21 X1000 (0.0-0.7); EOS% 1.2 % (0.0-10.0); HEMATOCRIT 41.4 % (42.0-52.0); HEMOGLOBIN 13.1 g/dL (14.0-18.0); IMM GRAN# 0.07 X1000 (0.0-0.04); IMM GRAN% 0.4 % (0.0-0.5); LYMPH# 1.11 X1000 (1.2-3.4); LYMPH% 6.6 % (20.5-51.1); MCH 33.8 PG (27-31); MCHC 31.6 g/dL (33-37); MCV 106.7 FL (81-99); MONO# 1.34 X1000 (0.11-0.59); MONO% 7.9 % (1.7-9.3); MPV 11.5 FL (7.4-10.4); NEUT# 14.12 X1000 (1.4-6.5); NEUT% 83.8 % (42.2-75.2); PLT 160 X1000 (130-400); RBC 3.88 XMIL (4.7-6.1); RDW 14.3 % (11.5-14.5); WBC 16.87 X1000 (4.8-10.8)
[2019-11-14] MEDS: ZYVOX 600 MG/D5W 600 MG/300 ML IVPB IV SCH ×2 (06:48→21:07)
[2019-11-14] MEDS: NS 1,000 ML IV ONE (06:48)
[2019-11-14] MEDS: PRILOSEC PO SCH (06:49)
[2019-11-14 06:54] LABS: ALB/GLOB RATIO 1.9; ALBUMIN 3.5 g/dL (3.5-5.0); CALCIUM 8.5 mg/dL (8.8-10.2); CREATININE 1.7 mg/dL (0.7-1.2); POTASSIUM 4.3 mmol/L (3.5-5.1); TOTAL BILIRUBIN 0.53 mg/dL (0.20-1.00); TOTAL PROTEIN 5.3 g/dL (6.3-8.3)
[2019-11-14] MEDS: PLAVIX PO SCH (10:45)
[2019-11-14] MEDS ORDERED: CYMBALTA PO SCH (11:15)
[2019-11-14] MEDS ORDERED: NORCO-10 PO PRN (11:15)
[2019-11-14] MEDS: DUONEB (A & A) INH SCH ×3 (11:27→23:12)
[2019-11-14] MEDS ORDERED: DEMADEX PO ONE (13:00)
--- NOTE | 2019-11-14 13:02 | PROGRESS NOTE ---
DATE: 11/14/2019 INTERVAL HISTORY: Mr. Yates's oxygen requirement has been stable. He has had low-grade temperature of 99.9 degrees. However, his blood work and tachycardia have been improving. SUBJECTIVE: Mr. Yates feels "significantly better than yesterday". He denies any chest pain. He denies any shortness of breath at rest. He is still coughing with greenish expectoration. He denies any nausea, vomiting, or abdominal pain. REVIEW OF SYSTEMS: Positive for cough. Positive for greenish expectoration. Negative for nausea and vomiting. VITALS: Temperature of 99.9 degrees, pulse 100, respiratory rate 19, blood pressure 130/70, he is saturating 99% on 2 to 4 L nasal cannula. PHYSICAL EXAMINATION: Oral cavity is moist. Lungs: Air entry bilaterally equal. No wheeze or rhonchi. He has crackles in bilateral interscapular regions. Cardiovascular: S1, S2 normal. Tachycardic. No murmur, rub, or gallop. Abdomen: Soft, nontender. No lower extremity edema. He has left-sided eye blindness. His pupils are reacting on the right side. He also had dilatation of his pupil on the left side, though it did not constrict on direct light exposure. LABS: Suggestive of improving leukocytosis with WBC of 16,000, hemoglobin 13.1, platelets 160,000. He has BUN of 23, creatinine 1.7. MICROBIOLOGY: Blood culture, influenza screen, group A rapid streptococcal antigen have been unremarkable. Electrocardiogram on presentation had sinus tachycardia with premature supraventricular complex. Chest x-ray this morning suggests moderate interstitial infiltrate, consistent with pneumonia. ASSESSMENT AND PLAN: 1. Sepsis and acute hypoxic respiratory failure due to bilateral atypical pneumonia. Continue intravenous linezolid and I will consider changing aztreonam to levofloxacin for better atypical coverage. Follow up oxygen requirement and CBC. I turned his oxygen down to 2 L and asked the nurse to recheck oxygen levels soon. Follow up sputum culture and urine antigens. 2. History of chronic obstructive pulmonary disease and active tobacco abuse. He was counseled about smoking cessation. Currently, he does not appear to be in any acute distress. He states he routinely does not use any inhalers. I will keep him on inhaled bronchodilators as needed. 3. History of coronary artery disease requiring percutaneous coronary intervention in 2006 and 2017, and congestive heart failure. His proBNP was within acceptable range. I will continue his home clopidogrel, metoprolol, and torsemide. He is also taking evolocumab at home. I do not think we have that formulation. 4. History of chronic kidney disease stage 3. I will follow up with daily BMP and repeat electrolytes. 5. History of rheumatoid arthritis, giant-cell arteritis and vision loss, chronic pain syndrome, gout. I will continue his home colchicine, allopurinol, [place]. 6. Disposition. Continue to monitor the patient inside the hospital as his oxygen requirement goes down. Plan of care was discussed with him. His questions have been answered. Mr. Yates mentions that he routinely stays at home, has not been exposed to someone with known Covid 19, has not traveled outside of [place] in the last several weeks. cc: Harris Medina MD
[2019-11-14] MEDS: LEVAQUIN 500 MG/D5W 500 MG/100 ML IVPB IV SCH (17:05)
[2019-11-15] MEDS: ZYVOX 600 MG/D5W 600 MG/300 ML IVPB IV SCH ×2 (06:38→21:00)
[2019-11-15] MEDS: PRILOSEC PO SCH (06:38)
[2019-11-15 06:56] LABS: BASO# 0.03 X1000 (0.0-0.2); BASO% 0.2 % (0.0-0.8); EOS# 0.24 X1000 (0.0-0.7); EOS% 1.8 % (0.0-10.0); HEMOGLOBIN 13.3 g/dL (14.0-18.0); IMM GRAN# 0.13 X1000 (0.0-0.04); LYMPH% 6.7 % (20.5-51.1); MCH 34.1 PG (27-31); MCHC 32.4 g/dL (33-37); MCV 105.1 FL (81-99); MONO# 1.49 X1000 (0.11-0.59); MONO% 11.1 % (1.7-9.3); MPV 11.1 FL (7.4-10.4); NEUT# 10.59 X1000 (1.4-6.5); NEUT% 79.2 % (42.2-75.2); PLT 186 X1000 (130-400); RDW 13.9 % (11.5-14.5); WBC 13.38 X1000 (4.8-10.8)
[2019-11-15 07:26] LABS: ALB/GLOB RATIO 1.6; ALBUMIN 3.4 g/dL (3.5-5.0); CALCIUM 9.1 mg/dL (8.8-10.2); CREATININE 1.8 mg/dL (0.7-1.2); POTASSIUM 4.2 mmol/L (3.5-5.1); TOTAL BILIRUBIN 0.44 mg/dL (0.20-1.00); TOTAL PROTEIN 5.5 g/dL (6.3-8.3)
--- NOTE | 2019-11-15 07:37 | EKG Report ---
Test Performed on : 11/15/2019 06:50:16 AM Test Reason : Follow up QTc Blood Pressure : / mmHG Vent. Rate : 099 BPM Atrial Rate : 099 BPM P-R Int : 172 ms QRS Dur : 088 ms QT Int : 356 ms P-R-T Axes : 078 -49 064 degrees QTc Int : 456 ms Normal sinus rhythm. Left axis deviation Low voltage QRS Abnormal ECG When compared with ECG of 13-NOV-2019 16:11, (Unconfirmed) premature supraventricular complexes. are no longer present Confirmed by Jeffrey Rangel MD ([id number]) on 11/15/2019 3:57:05 PM
[2019-11-15] MEDS: ALLEGRA PO SCH (08:10)
[2019-11-15] MEDS: COLCRYS PO SCH (08:10)
[2019-11-15] MEDS: LOPRESSOR PO SCH (08:10)
[2019-11-15] MEDS: DEMADEX PO SCH (08:11)
[2019-11-15] MEDS: ZYLOPRIM PO SCH (08:11)
[2019-11-15] MEDS: PLAVIX PO SCH (08:11)
[2019-11-15] MEDS: DUONEB (A & A) INH SCH ×3 (09:00→23:46)
[2019-11-15] MEDS ORDERED: NON-FORMULARY MED (Esomeprazole Magnesium [Nexium] 20 MG) PO SCH (09:00)
--- NOTE | 2019-11-15 14:51 | PROGRESS NOTE ---
DATE: 11/15/2019 INTERVAL HISTORY: No acute events overnight. SUBJECTIVE: Mr. Yates denies any chest pain, shortness of breath. He has occasional cough, but he is feeling significantly better. He wants to go home. VITALS: Temperature of 97.8 degrees, pulse 74, blood pressure 123/73. He is saturating 91% on room air. PHYSICAL EXAMINATION: General: On physical examination, not in acute distress. Oral cavity: Moist. Lungs: I turned his oxygen down and he was saturating 93%. He has inspiratory crackles in bilateral infrascapular region. Heart: S1, S2 normal. No murmur, rub, or gallop. Abdomen: Soft, nontender. Extremities: No lower extremity edema. Neurologic: He has left-sided blindness. He is alert and oriented x3. He has hearing impairment as well. LABS: Suggestive of WBC of 13,000, hemoglobin 13.3, platelet 186. BUN of 21, creatinine 1.8. MICROBIOLOGY: No positive microbiological data. ASSESSMENT AND PLAN: 1. Sepsis and acute hypoxic respiratory failure due to bilateral atypical pneumonia. Continue intravenous linezolid and intravenous levofloxacin. Wean down oxygen to maintain saturation more than 88%. Follow up urine antigens. 2. History of chronic obstructive pulmonary disease and active tobacco abuse, not in current exacerbation. I counseled him about smoking cessation. I will keep him on inhaled bronchodilators as needed. 3. History of coronary artery disease requiring percutaneous intervention in 2006 and 2017, as well as congestive heart failure. Continue home clopidogrel, metoprolol and torsemide. He should resume Evolocumab at the time of discharge. 4. History of chronic kidney disease stage III, currently stable. 5. History of rheumatoid arthritis, giant cell arteritis, vision loss and chronic pain syndrome with gout. Continue home colchicine, allopurinol, and [place]. DISPOSITION: I will consider discharging later tonight or tomorrow. Plan of care discussed with the patient. His questions have been answered. cc: Harris Medina MD
[2019-11-15] MEDS: LEVAQUIN 500 MG/D5W 500 MG/100 ML IVPB IV SCH (16:27)
[2019-11-15] MEDS ORDERED: ZYVOX PO ONE (21:00)
[2019-11-16] MEDS: ZYVOX 600 MG/D5W 600 MG/300 ML IVPB IV SCH ×2 (06:28→06:33)
[2019-11-16] MEDS: PRILOSEC PO SCH (06:29)
[2019-11-16 07:17] LABS: BASO# 0.06 X1000 (0.0-0.2); BASO% 0.6 % (0.0-0.8); EOS# 0.25 X1000 (0.0-0.7); EOS% 2.3 % (0.0-10.0); HEMATOCRIT 41.5 % (42.0-52.0); HEMOGLOBIN 13.7 g/dL (14.0-18.0); IMM GRAN# 0.18 X1000 (0.0-0.04); IMM GRAN% 1.7 % (0.0-0.5); LYMPH% 13.1 % (20.5-51.1); MCH 34.5 PG (27-31); MCV 104.5 FL (81-99); MONO# 1.29 X1000 (0.11-0.59); MONO% 12.1 % (1.7-9.3); MPV 11.1 FL (7.4-10.4); NEUT# 7.52 X1000 (1.4-6.5); NEUT% 70.2 % (42.2-75.2); PLT 191 X1000 (130-400); RBC 3.97 XMIL (4.7-6.1); RDW 13.9 % (11.5-14.5)
[2019-11-16 07:37] LABS: ALB/GLOB RATIO 1.2; ALBUMIN 3.2 g/dL (3.5-5.0); CALCIUM 8.9 mg/dL (8.8-10.2); CREATININE 1.9 mg/dL (0.7-1.2); POTASSIUM 3.9 mmol/L (3.5-5.1); TOTAL BILIRUBIN 0.38 mg/dL (0.20-1.00); TOTAL PROTEIN 5.8 g/dL (6.3-8.3)
[2019-11-16] MEDS: DUONEB (A & A) INH SCH (08:47)
[2019-11-16] MEDS: ZYLOPRIM PO SCH (09:42)
[2019-11-16] MEDS: COLCRYS PO SCH (09:42)
[2019-11-16] MEDS: ALLEGRA PO SCH (09:42)
[2019-11-16] MEDS: PLAVIX PO SCH (09:42)
[2019-11-16] MEDS: DEMADEX PO SCH (09:42)
[2019-11-16] MEDS: LOPRESSOR PO SCH (09:42)
[2019-11-16 12:21] VITALS: BP 130/95
--- NOTE | 2019-11-16 13:27 | DISCHARGE SUMMARY ---
ADMISSION DATE: 11/13/2019 DISCHARGE DATE: 11/16/2019 DISCHARGE DISPOSITION: Home. DISCHARGE CONDITION: Hemodynamically stable. Mr. Yates, on my evaluation, is breathing well on room air, saturating between 93 to 96 percent on room air. He denies any chest pain. His shortness of breath has significantly improved. His cough has significantly improved. He would be prescribed oral antibiotic course and he should have outpatient followup with his regular doctor. He was counseled about smoking cessation. DISCHARGE DIAGNOSES: 1. Sepsis and acute hypoxic respiratory failure due to bilateral atypical pneumonia. 2. Active tobacco abuse. 3. Positive respiratory viral panel for non type B Haemophilus influenzae performed outpatient. 4. Chronic kidney disease stage III. OTHER DIAGNOSES: 1. History of chronic obstructive pulmonary disease. 2. History of coronary artery disease requiring percutaneous coronary intervention in 2006 and 2017. 3. History of congestive heart failure due to ischemic cardiomyopathy. 4. History of chronic kidney disease stage III. 5. History of rheumatoid arthritis, giant cell arteritis, vision loss. 6. History of chronic pain. 7. History of gout. DISCHARGE MEDICATIONS: 1. [place] 10 one tablet every 8 hours. 2. Tocilizumab 162 mg subcutaneously daily. 3. Duloxetine 60 mg daily. 4. Fexofenadine 180 mg daily. 5. Fluticasone 1 spray as needed. 6. Potassium chloride 10 mEq daily. 7. Meclizine 12.5 mg daily. 8. Metoprolol tartrate 25 mg daily. 9. Nexium 20 mg daily. 10. Clopidogrel 75 mg daily. 11. Evolocumab 140 mg subcutaneously daily. 12. Torsemide 20 mg daily. 13. Allopurinol 300 mg daily. 14. Colchicine 0.6 mg daily. 15. Levofloxacin 500 mg daily for 3 days. VITAL SIGNS AT THE TIME OF DISCHARGE: Temperature 97.5 degrees, pulse 86, respiratory rate 19, blood pressure 130/95, saturating 94% on room air on my evaluation. PHYSICAL EXAMINATION: General: Not in acute distress. HEENT: Oral cavity is moist. Lungs: Air entry bilaterally equal. No wheeze, rhonchi, crackles. Cardiovascular: S1, S2 normal. No murmur, rub or gallop. Abdomen: Soft, nontender. Extremities: No lower extremity edema. Neurologic: He was alert and oriented x3. He has left-sided blindness and hearing impairment. LABORATORY DATA: At the time of admission and discharge: [place] [address] [place] [address] at the time of discharge. Hemoglobin is 13.7 platelet 191,000. BUN 25, creatinine 1.9. His immunoglobulin levels where within acceptable range except slightly lower IgG and IgM. He was advised to have repeat immunoglobulin levels done outpatient. His urine streptococcal antigens were negative. SIGNIFICANT IMAGING DURING HOSPITAL ADMISSION: 1. Chest x-ray on November 12 had pulmonary edema and/or pneumonia. 2. Chest x-ray on November 13 had stable interstitial infiltrate consistent with pneumonia and viral infection. 3. Electrocardiogram on presentation had sinus tachycardia with premature supraventricular complexes and left anterior fascicular block. HOSPITAL COURSE SUMMARY: Mr. Yates is an 84-year-old man with history of active tobacco abuse and COPD, who came in on 11/13/2019 with chief complaints of shortness of breath and coughing up of green-yellow phlegm. He also had history of chronic kidney disease stage 3 and congestive heart failure and chronic pain because of rheumatoid arthritis. For 3 days prior to presentation, he was becoming increasingly short of breath, especially during physical exertion, though he did not have any fever. He was getting dizzy and used to lose his balance. Associated with that, he had greenish-yellow expectoration, so he decided to come to the hospital. It looks like his regular doctor outpatient had performed a respiratory viral panel, the results of which was faxed over to me during later part of the hospitalization, which was positive for non type B Haemophilus influenzae. In the emergency room when he presented, he was found to have a temperature of 99.8 degrees, pulse of 116, respiratory rate of 22, blood pressure of 111/74, and oxygen saturation of 97%. His initial lab work had leukocytosis of 22,000. He was diagnosed with sepsis and acute hypoxic respiratory failure. Chest x-ray had interstitial infiltrate, so he was started on intravenous antibiotics and admitted for management of pneumonia. He was initially treated with intravenous linezolid and intravenous levofloxacin and was started on oxygen with antibiotic treatment along with inhaled bronchodilators. His condition improved, his leukocytosis normalized and he was breathing well on room air, so it was decided to discharge him on oral antibiotics and outpatient followup. He was advised to have outpatient immunoglobulin checkup as well. At the time of discharge, he was provided detailed discharge instructions regarding smoking cessation as well. TIME SPENT: 25 minutes were spent discharging this patient. Plan of care was extensively discussed with him. He was allowed to ask questions. All of his questions were satisfactorily answered. cc: Harris Medina MD MTDD
== END 2019-11-16 13:54 | disposition home or self-care (01) | DRG 871 ==
LOC: SUPCPDRO → ED 15:07 → EDIPHOLD 18:39 → SUATTDRO 18:39 → 3N 21:35
PROVIDERS: ATTEND Internal Medicine